=== PATIENT | female | born 1990 | race Caucasian/White ===

== ENCOUNTER 2021-07-02 13:37 | Outpatient (CLI) | payer BC, SELFPAY ==
[2021-07-02 16:53] LABS: *AMPHETAMINES SCREEN URINE Negative (Negative); *BARBITURATES SCREEN URINE Negative (Negative); *BENZODIAZEPINES SCREEN URINE Negative (Negative); Cannabinoids THC Negative (Negative); Cocaine Screen,Urine Negative (Negative); METHADONE URINE SCREEN Negative (Negative); OPIATES URINE SCREEN Negative (Negative)
[2021-07-02 16:55] LABS: Tricyclic Antidepressants Negative (Negative)
[2021-07-02 17:12] LABS: TSH (W/Ref FT4) 2.35 uIU/mL (0.36-3.74)
[2021-07-04 09:33] LABS: Varicella IgG Antibody Positive (See Note)
[2021-07-04 10:26] LABS: Hepatitis C Ab w Rflx HCV PCR Negative (Negative)
[2021-07-04 15:09] LABS: Chlamydia Result Negative (Negative); GC Result Negative (Negative)
[2021-07-05 18:55] LABS: Syphilis IgG w/Reflex Nonreactive (Nonreactive)
[2021-07-07 11:40] LABS: Buprenorphine Negative ng/mL (Cutoff: 5.0); Norbuprenorphine Negative ng/mL (Cutoff: 2.5)
== END 2021-07-02 13:38 | disposition home or self-care (01) ==
LOC: LBO 13:38 → LBN 16:14
PROVIDERS: Visit Provider Advanced Practice Midwife
DX: Z34.92 Encounter for supervision of normal pregnancy, unspecified, second trimester (principal)
CPT/HCPCS: 80307; 86787; 86803; 86850; 86900; 86901; 87491; 87591; 84443; 86780

== ENCOUNTER 2021-07-06 03:42 | Outpatient (CLI) | payer BC, SELFPAY ==
[2021-07-06 12:45] LABS: Glucose,1 Hr (Glucola) 106 mg/dL (80-140)
== END 2021-07-06 03:43 | disposition home or self-care (01) ==
LOC: LBO 03:42
PROVIDERS: Visit Provider Advanced Practice Midwife
DX: Z34.92 Encounter for supervision of normal pregnancy, unspecified, second trimester (principal)
CPT/HCPCS: 36415; 82950

== ENCOUNTER 2021-09-03 02:19 | Outpatient (CLI) | payer BC, SELFPAY ==
[2021-09-03 07:45] LABS: HCT 32.9 % (36.0-46.0); HGB 10.6 g/dL (11.2-15.7); MCHC 32.2 % (32.0-36.0); MCV 90 fL (80-95); MPV 10.2 fL (8.0-11.0); Platelet Count 206 10^3/uL (130-400); RBC 3.65 10^6/uL (3.93-5.22); RDW 12.9 % (11.7-14.6); RDW-SD 42.8 fL; WBC 9.69 10^3/uL (4.4-10.8)
[2021-09-03 07:54] LABS: Glucose,1 Hr (Glucola) 125 mg/dL (80-140)
[2021-09-03 09:39] LABS: TSH (W/Ref FT4) 1.69 uIU/mL (0.36-3.74)
== END 2021-09-03 02:20 | disposition home or self-care (01) ==
LOC: LBO 02:19
PROVIDERS: Advanced Practice Midwife; Visit Provider Advanced Practice Midwife
DX: O99.212 Obesity complicating pregnancy, second trimester (principal); Z3A.26 26 weeks gestation of pregnancy
CPT/HCPCS: 36415; 82950; 85027; 84443

== ENCOUNTER 2021-11-06 17:45 | Outpatient (REF) | payer BC, SELFPAY ==
[2021-11-06 19:12] LABS: *AMPHETAMINES SCREEN URINE Negative (Negative); *BARBITURATES SCREEN URINE Negative (Negative); *BENZODIAZEPINES SCREEN URINE Negative (Negative); Cannabinoids THC Negative (Negative); Cocaine Screen,Urine Negative (Negative); METHADONE URINE SCREEN Negative (Negative); OPIATES URINE SCREEN Negative (Negative)
[2021-11-06 19:13] LABS: Tricyclic Antidepressants Negative (Negative)
[2021-11-13 11:32] LABS: Buprenorphine Negative ng/mL (Cutoff: 5.0); Norbuprenorphine Negative ng/mL (Cutoff: 2.5)
== END 2021-11-06 17:46 | disposition home or self-care (01) ==
LOC: LBN 17:45
PROVIDERS: Visit Provider Advanced Practice Midwife
DX: Z34.93 Encounter for supervision of normal pregnancy, unspecified, third trimester (principal); Z36.85 Encounter for antenatal screening for Streptococcus B; Z3A.37 37 weeks gestation of pregnancy
CPT/HCPCS: 80307; 87081

== ENCOUNTER 2021-11-12 11:16 | Outpatient (REF) | payer BC, SELFPAY ==
--- OUTSIDE RECORDS SUMMARY | 2021-11-12 11:24 | XMS_ITS | Clinical Summary ---
:1990 Demographics Home Phone Preferred Language Unknown Marital Status Unknown Muslim Affiliation Unknown Race Unknown Ethnic Group Unknown Author Organization [facility] Address [address] [place] [address] Care Team Providers Name Role Phone Unavailable Primary Care Provider Unavailable Social History Tobacco Use Types Packs/Day Years Used Date Never Assessed Sex Assigned at Date Recorded Not on file Plan of Treatment Health Maintenance Due Date Last Done Comments COVID-19 Vaccine (1) 1997 Hepatitis C Screen Completed 07/02/2021
--- OUTSIDE RECORDS SUMMARY | 2021-11-12 11:24 | XMS_ITS | Encounter Summary ---
:1990 Demographics Home Phone Preferred Language Unknown Marital Status Unknown Latter-Day Affiliation Unknown Race Unknown Ethnic Group Unknown Author Organization [facility] Address [address] [place] [address] Care Team Providers Name Role Phone Unavailable Primary Care Provider Unavailable Encounter Details Date Type Department Care Team Description 07/03/2021 Lab Requisition [facility] Outr Resulting Lab, Pathology & Laboratory Provider [facility] [address] [place] [address] Social History Tobacco Use Types Packs/Day Years Used Date Never Assessed Sex Assigned at Date Recorded Not on file documented as of this encounter Plan of Treatment Not on filedocumented as of this encounter Procedures Procedure Name Priority Date/Time Associated Diagnosis Comme nts HEPATITIS C AB W Routine 07/02/2021 15:37 Results for this REFLEX TO HCV RNA EST procedure are in BY PCR the results section. VARICELLA IGG Routine 07/02/2021 15:37 Results fo r this ANTIBODY EST procedure are i n the results section. documented in this encounter Results HEPATITIS C AB W REFLEX TO HCV RNA BY PCR (07/02/2021 15:37 EST) Pathologist Sig nature Hep C Antibody Negative Negative [facility] Specimen Blood - Venous blood (substance) Performing Organization Address [facility]/ZIP Code Phon e Number [facility] [address] [place] [address] SERVICES VARICELLA IGG ANTIBODY (07/02/2021 15:37 EST) Varicella IgG Ab PositiveComment: See Note [facility] detectable Varicella Zoster virus IgG antibodies. Specimen Blood - Venous blood (substance) Performing Organization Address [facility]/ZIP Code Phon e Number [facility] [address] [place] [address] SERVICES documented in this encounter Visit Diagnoses Not on filedocumented in this encounter
--- OUTSIDE RECORDS SUMMARY | 2021-11-12 11:24 | XMS_ITS | Encounter Summary ---
:1990 Demographics Home Phone Preferred Language Unknown Marital Status Unknown Scientology Affiliation Unknown Race Unknown Ethnic Group Unknown Author Organization [facility] Address [address] [place] [address] Care Team Providers Name Role Phone Unavailable Primary Care Provider Unavailable Encounter Details Date Type Department Care Team Description 07/03/2021 Lab Requisition [facility] Outr Resulting Lab, Pathology & Laboratory Provider [facility] [address] [place] [address] Social History Tobacco Use Types Packs/Day Years Used Date Never Assessed Sex Assigned at Date Recorded Not on file documented as of this encounter Plan of Treatment Not on filedocumented as of this encounter Procedures Procedure Name Priority Date/Time Associated Comments Diagnosis CHLAMYDIA/N. Routine 07/02/2021 14:30 Results for this GONORRHOEAE AMPLIFIED EST proced ure are in RNA the results section. documented in this encounter Results CHLAMYDIA/N. GONORRHOEAE AMPLIFIED RNA (07/02/2021 14:30 EST) Pathologist Sig nature Gonococcus Result Negative Negative [facility] Chlamydia Result Negative Negative [facility] Specimen Urine - Urine, Dirty Urine Narrative [facility] - 07/04/2021 15:04 EST A first catch urine specimen is acceptab le for detection of Gonorrhea and Chlamydia, but might detect up to 10% fewer infecti ons when compared with vaginal and endocervical swab samples. Performing Organization Address City/State/ZIP Code Phon e Number [facility] [address] [place] [address] SERVICES documented in this encounter Visit Diagnoses Not on filedocumented in this encounter
== END 2021-11-12 11:17 | disposition home or self-care (01) ==
LOC: LBN 11:16
PROVIDERS: Visit Provider Advanced Practice Midwife
DX: Z34.93 Encounter for supervision of normal pregnancy, unspecified, third trimester (principal); Z36.85 Encounter for antenatal screening for Streptococcus B; Z3A.37 37 weeks gestation of pregnancy
CPT/HCPCS: 87081

== ENCOUNTER 2021-11-19 14:14 | Outpatient (REF) | payer BC, SELFPAY ==
[2021-11-19 14:26] VITALS: BP 121/86; PULSE 86
[2021-11-19 14:41] VITALS: BP 128/81; PULSE 84; RESP 18; TEMP 36.8
[2021-11-19 14:45] VITALS: BP 128/81; PULSE 84; TEMP 36.8
--- NOTE | 2021-11-19 15:31 | W.OBNST ---
Date of service: 11/19/21 Time of Service: 15:00 NST Evaluation Reason for NST Reasons for Nonstress Test: GESTATIONAL HYPERTENSION Gestational Age Gestational Age in Weeks and Days: 38 Weeks and 6Days Test and Monitor Explained Test/Monitor Explained: Test Explained, Monitor Explained and Patient Verbalized Understanding Vital Signs Blood Pressure: 128/81 Pulse: 84 Temperature: 98.2 F Urine Results Urine Protein: Negative Urine Ketones: Negative Urine Glucose: Negative Urine Blood: Negative NST Information Date on Monitor: 11/19/21 Time on Monitor: 14:04 Date off Monitor: 11/19/21 Time off Monitor: 15:11 Total Time on Monitor: 67 NST Interventions: PO Hydration NST Evaluation Patient States Movement: Present FHR Baseline: 140 Variability: Moderate 6-25 bpm Accelerations: 15x15 Decelerations: None NST Results: Reactive Note NST Note Note: NST done due to elevation of BP in office, however, not in severe ranges. Patient denies DEVINE, visual disturbance or RUQ pain. Baby has been active. NST is reactive and overall reassuring however difficult to maintain tracing due to frequent movement. Patient has been educated on pre-eclampsia and warning signs to inform us of. Has appointment to follow up in office in 1 week. MICAH NST Reviewed and Verified by: Celsa Ramos
[2021-11-19 15:33] VITALS: BP 128/81; PULSE 84; TEMP 36.8
== END 2021-11-19 15:20 | disposition home or self-care (01) ==
LOC: BCD 14:14
PROVIDERS: Visit Provider Advanced Practice Midwife
DX: O13.3 Gestational [pregnancy-induced] hypertension without significant proteinuria, third trimester (principal); Z3A.38 38 weeks gestation of pregnancy
CPT/HCPCS: 59025

== ENCOUNTER 2021-11-26 13:21 | Outpatient (CLI) | payer BC, SELFPAY ==
[2021-11-26 13:27] VITALS: BP 113/64; PULSE 90; TEMP 37
[2021-11-26 13:46] VITALS: BP 113/64; PULSE 90
--- NOTE | 2021-11-26 14:09 | W.OBNST ---
Date of service: 11/26/21 Time of Service: 14:09 NST Evaluation Reason for NST Reasons for Nonstress Test: GESTATIONAL HYPERTENSION Gestational Age Gestational Age in Weeks and Days: 39 Weeks and 4Days Test and Monitor Explained Test/Monitor Explained: Test Explained, Monitor Explained and Patient Verbalized Understanding Vital Signs Blood Pressure: 113/64 Pulse: 90 Temperature: 98.6 F NST Information Time on Monitor: 13:25 Date off Monitor: 11/26/21 Time off Monitor: 13:45 NST Interventions: None NST Evaluation Patient States Movement: Present FHR Baseline: 120 Variability: Moderate 6-25 bpm Accelerations: 15x15 Decelerations: None NST Results: Reactive Note NST Note Note: B.P. 130/90 at the office today. Nahomi reported that she has been checking her BP at home and it was normal. BP during NST . Discussed twice weekly testing and continue daily BP at home. Post dates testing at 41 weeks. neg edema. She denies symptoms of preeclampsia. Precautions reviewed. After reviewing Nahomi's dating, she reported that her dating was based on LMP although she had very irregular menses. We discussed using the US dating with [facility] 11/29/21. However, I can not access the first trimester US results from [place] at this time. Will obtain. NST Reviewed and Verified by: Celsa Guzman
[2021-11-26 14:12] VITALS: BP 113/64; PULSE 90; TEMP 37
[2021-11-26 14:30] LABS: COMMENT (LAB VIEW ONLY) 31.15 mg/dL; PROTEIN < 6.0 mg/dL
== END 2021-11-26 14:10 | disposition home or self-care (01) ==
LOC: LBN 13:22 → BCD 13:23 → OBS 13:24
PROVIDERS: Visit Provider Advanced Practice Midwife
DX: O13.3 Gestational [pregnancy-induced] hypertension without significant proteinuria, third trimester (principal); Z3A.39 39 weeks gestation of pregnancy
CPT/HCPCS: 59025; 82565; 84156

== ENCOUNTER 2021-11-29 08:32 | Outpatient (CLI) | payer BC, SELFPAY ==
--- OUTSIDE RECORDS SUMMARY | 2021-11-29 08:35 | XMS_ITS | Encounter Summary ---
:1990 Demographics Home Phone Preferred Language Unknown Marital Status Unknown Sabianism Affiliation Unknown Race Unknown Ethnic Group Unknown Author Organization [facility] Address [address] [place] [address] Care Team Providers Name Role Phone Unavailable Primary Care Provider Unavailable Encounter Details Date Type Department Care Team Description 07/03/2021 Lab Requisition [facility] Outr Resulting Lab, Pathology & Laboratory Provider [facility] [address] [place] [address] Social History Tobacco Use Types Packs/Day Years [...] Pathologist Sig nature Gonococcus Result Negative Negative [facility] Chlamydia Result Negative Negative [facility] Specimen Urine - Urine, Initial Void Narrative [facility] - 07/04/2021 15:04 EST A first catch urine specimen is acceptab le for detection of Gonorrhea and Chlamydia, but might detect up to 10% fewer infecti ons when compared with vaginal and endocervical swab samples. Performing Organization Address City/State/ZIP Code Phon e Number [facility] [address] [place] [address] SERVICES documented in this encounter Visit Diagnoses Not on filedocumented in this encounter
--- OUTSIDE RECORDS SUMMARY | 2021-11-29 08:35 | XMS_ITS | Encounter Summary ---
:1990 Demographics Home Phone Preferred Language Unknown Marital Status Unknown Hinduism Affiliation Unknown Race Unknown Ethnic Group Unknown Author Organization [facility] Address [address] [place] [address] Care Team Providers Name Role Phone Unavailable Primary Care Provider Unavailable Encounter Details Date Type Department Care Team Description 07/03/2021 Lab Requisition [facility] Outr Resulting Lab, Pathology & Laboratory Provider [facility] [address] [place] [address] Social History Tobacco Use Types Packs/Day Years [...] Sig nature Hep C Antibody Negative Negative [facility] Specimen Blood - Venous blood (substance) Performing Organization Address [facility]/ZIP Code Phon e Number [facility] [address] [place] [address] SERVICES VARICELLA IGG ANTIBODY (07/02/2021 15:37 EST) Varicella IgG Ab PositiveComment: See Note [facility] detectable Varicella Zoster virus IgG antibodies. Specimen Blood - Venous blood (substance) Performing Organization Address [facility]/ZIP Code Phon e Number [facility] [address] [place] [address] SERVICES documented in this encounter Visit Diagnoses Not on filedocumented in this encounter
[2021-11-29 10:10] VITALS: BP 133/84; PULSE 99; TEMP 36.9
--- NOTE | 2021-11-29 15:58 | W.OBNST ---
Date of service: 11/29/21 Time of Service: 10:50 NST Evaluation Reason for NST Reasons for Nonstress Test: GESTATIONAL HYPERTENSION Gestational Age Gestational Age in Weeks and Days: 40 Weeks and 0Days Test and Monitor Explained Test/Monitor Explained: Test Explained, Monitor Explained and Patient Verbalized Understanding Vital Signs Blood Pressure: 133/84 Pulse: 99 Temperature: 98.4 F NST Information Date on Monitor: 11/29/21 Time on Monitor: 10:07 Date off Monitor: 11/29/21 Time off Monitor: 10:52 Total Time on Monitor: 45 NST Interventions: PO Hydration Contraction Frequency: rare NST Evaluation Patient States Movement: Present FHR Baseline: 140 Variability: Moderate 6-25 bpm Accelerations: 15x15 Decelerations: None NST Results: Reactive Note NST Note Note: Cvx checked at pt request: ft/60%, soft, midpelvis, vtx -3 Keep next appt on Friday in [facility], 41 wk appt for NST & [place] made for 12/05/21 NST Reviewed and Verified by: Seema Alexandre
[2021-11-29 15:59] VITALS: BP 133/84; PULSE 99; TEMP 36.9
== END 2021-11-29 11:15 | disposition home or self-care (01) ==
LOC: BCD 08:33 → OBS 10:08
PROVIDERS: Visit Provider Advanced Practice Midwife
DX: O13.3 Gestational [pregnancy-induced] hypertension without significant proteinuria, third trimester (principal); Z3A.40 40 weeks gestation of pregnancy
CPT/HCPCS: 59025

== ENCOUNTER 2021-12-05 07:13 | Outpatient (CLI) | payer BC, SELFPAY ==
--- OUTSIDE RECORDS SUMMARY | 2021-12-05 07:18 | XMS_ITS | Encounter Summary ---
:1990 Demographics Home Phone Preferred Language Unknown Marital Status Unknown Islam Affiliation Unknown Race Unknown Ethnic Group Unknown Author Organization [facility] Address [address] [place] [address] Care Team Providers Name Role Phone Unavailable Primary Care Provider Unavailable Encounter Details Date Type Department Care Team Description 07/03/2021 Lab Requisition [facility] Outr Resulting Lab, Pathology & Laboratory Provider [facility] [address] [place] [address] Social History Tobacco Use Types Packs/Day Years [...] Pathologist Sig nature Gonococcus Result Negative Negative [facility] Chlamydia Result Negative Negative [facility] Specimen Urine - Urine, Initial Void Narrative [facility] - 07/04/2021 15:04 EST A first catch urine specimen is acceptab le for detection of Gonorrhea and Chlamydia, but might detect up to 10% fewer infecti ons when compared with vaginal and endocervical swab samples. Performing Organization Address City/State/ZIP Code Phon e Number [facility] [address] [place] [address] SERVICES documented in this encounter Visit Diagnoses Not on filedocumented in this encounter
[2021-12-05 10:17] VITALS: BP 127/89; PULSE 104
[2021-12-05 10:34] VITALS: BP 127/89; PULSE 104; TEMP 36.6
--- NOTE | 2021-12-05 10:58 | W.OBNST ---
Date of service: 12/05/21 Time of Service: 10:25 NST Evaluation Reason for NST Reasons for Nonstress Test: POSTDATES Gestational Age Gestational Age in Weeks and Days: 41 Weeks and 1Days Test and Monitor Explained Test/Monitor Explained: Test Explained, Monitor Explained and Patient Verbalized Understanding Vital Signs Blood Pressure: 127/89 Pulse: 104 Temperature: 97.9 F NST Information Date on Monitor: 12/05/21 Time on Monitor: 10:03 Date off Monitor: 12/05/21 Time off Monitor: 10:20 Total Time on Monitor: 17 NST Interventions: Other Contraction Frequency: 0 NST Evaluation Patient States Movement: Present FHR Baseline: 135 Variability: Moderate 6-25 bpm Accelerations: 15x15 Decelerations: None NST Results: Reactive Note NST Note Note: NST is reactive. Patient is requesting induction for post due date induction. I have reviewed options and did VE. 1.5/60/-2 mid and soft. Patient will return this afternoon for induction of labor. MICAH NST Reviewed and Verified by: Celsa Ramos
[2021-12-05 11:00] VITALS: BP 127/89; PULSE 104; TEMP 36.6
== END 2021-12-05 10:38 | disposition home or self-care (01) ==
LOC: BCD 07:21 → NUR 10:02 → OBS 10:10
PROVIDERS: Visit Provider Advanced Practice Midwife
DX: O48.0 Post-term pregnancy (principal); Z3A.41 41 weeks gestation of pregnancy
CPT/HCPCS: 59025

== ENCOUNTER 2021-12-05 11:29 | Inpatient (IN) | payer BC, SELFPAY ==
--- NOTE | 2021-12-05 13:17 | W.PM.OBHPL1 ---
Date of service: 12/05/21 Time of Service: 13:17 Assessment and Plan Assessment and plan (1) Post-dates : Status: Acute Assessment and plan: 1. I have reviewed options of continued ante- surveillance and expectant management as well as option of induction of labor with patient and her . They prefer to move forward with induction. I have reviewed medications such as misoprostol and pitocin use, risks, benefits and expected results. They deny questions at this time. (2) Encounter for induction of labor: Status: Acute Assessment and plan: 1. Saline lock, pre-eclampsia labs due to recent mild BP elevations, type and screen and cbc to be drawn. COVID swab to be done 2. Will give misoprostol 50 mcg and reassess in 4 hours for change in leonard score. 3. Will inform anesthesia of patients arrival and potential for epidural as that was in her plan. 4. Expect NVD. OB-HPI Labor/Delivery History of Present Illness Reason for Visit: Post term Chief Complaint: Scheduled Induction of Labor Indication for Induction: Post Date. CHEL Calculator Estimated Delivery Date Method Current WG Current Estimate 11/29/21 Ultrasound #1 40w 6d Other Estimates 11/27/21 LMP (Certain) 41w 1d History of Present Expected Delivery Route/Plan - CNM FOB/ - Blake Fenton (first child) Doesn't wish to know gender, if male will circ Planning to have an epidural / GBS neg Specific Issues/Plan 1. Transfer @ 18 wks from [place], had PNC there. 2. Panorama screen done in [place] and was nml, records req'ed, also need PAP & 9 wk sono 2a. PAP on 04/26/21 is negative, Panorama low prob x6 female 3. Pt is COVID vaccinated, FOB not yet, [place] has had covid x 2 prior to . 4. Early glucola for BMI of 56=072, glucola at 28 weeks-125 5. Low dose ASA recommended for nulliparity & BMI >30 6. Hx anxiety, no meds x1 yr, declines [facility] referral, PHQ9 score=1 7. LC consult after 36 wks for flat nipples; done 8. Mild anemia, discussed at visit, daily iron supplement recommended 9. TSH 4.27 04/24, repeat x 2 and WNL. Narrative: Nahomi has opted for induction of labor due to 40w6d and increasing discomfort in pelvis affecting her mobility and rest. She has had some mild BP elevations recently at her visits. Will do pre-eclamspia labs on admission. Denies DEVINE, visual disturbance or epigastric pain. I have reviewed option of induction of labor as well as expectant management including risks/benefits of each. Nahomi prefers to move forward with induction today. She plans epidural in active labor. KH Informed Consent Informed Consent: Induction of Labor and Risk,Benefits,Alternatives Discussed Review of Systems All systems reviewed & are unremarkable except as noted in HPI and below PFSH All Active Problems (Updated 12/05/21 @ 13:24 by Celsa Ramos CNM) Encounter for induction of labor (Acute) Post-dates (Acute) Anemia affecting first (Acute) Body mass index [BMI] 38.0-38.9, adult (Acute) (Acute) Medical History History of anxiety Social History Smoking/Tobacco Use Status: Never Smoking risk assessment performed?: Yes Alcohol Intake: never Drug use: Never Household members: spouse Housing: house Number of Children: 0 current occupation: Stock Puller Sexually active: Yes Do you think of yourself as: straight/heterosexual Current gender identity: female What is your relationship status?: Panel score (0-1 are the most socially isolated patients): 1 Darcy/Congregation: Taoist Agree to transfusion: Yes Female Reproductive History Menstrual Age of Menarche: 17 Duration of menses: 3-5 days History History 1 Para 0 Hx # Term Pregnancies 0 Multiple births 0 Hx # Pregnancies 0 Ectopic pregnancies 0 AB induced 0 Hx Number of Living Children 0 AB spontaneous 0 Meds Allergies and Home Medications Allergies Allergy/AdvReac Type Severity Reaction Status Date / Time No Known Drug Allergies Allergy Verified 12/05/21 13:22 Home Medications Medication Instructions Recorded Confirmed Type choline 250 mg tablet 110 mg PO DAILY 06/14/21 12/05/21 History vits 75-iron 28 mg-folic 1 pkg PO DAILY 06/14/21 12/05/21 History acid 800 mcg-omega-3 oral combo pack (One A Day Women's DHA) aspirin 81 mg tablet,delayed 81 mg PO DAILY #90 tabs 07/02/21 12/05/21 Rx release magnesium 200 mg tablet 400 mg PO DAILY 07/30/21 12/05/21 History cholecalciferol (vitamin D3) 25 25 mcg PO DAILY 08/27/21 12/05/21 History mcg (1,000 unit) capsule docusate sodium 100 mg capsule 100 mg PO BID #60 caps 10/09/21 12/05/21 Rx (Colace) ferrous sulfate 325 mg (65 mg 325 mg PO Q OTHER DAY 10/09/21 12/05/21 History iron) tablet (FeroSul) Exam Constitutional Constitutional: no acute distress and obese Detailed Labor and Delivery Exam Dilation: 1.5 Effacement (%): 60 station: -2 Cervix position: mid Consistency: soft Leonard Score: Cervical Points Exam 0 1 2 3 Dilation Closed 1-2cm 3-4 cm 5-6cm Effacement 0-30% 40-50% 60-70% 80% Consistency Firm Medium Soft Station -3 -2 -1,0 +1,+2 Position Posterior Mid Anterior LEONARD Score(Cervical Ripeness Score): 7 Amniotic Membrane Status: Intact Monitor Mode: External Contraction Frequency(min): 0 Contraction Duration(sec): 0 Comments: NST done earlier today demonstrated reactive tracing, CAT I, no active contractions. KH Fetus A Heart Rate Baseline: 120 Monitor Accelerations: 15 X 15 Monitor Decelerations: Variable (one variable to 90 X 15 seconds, may be artifact in tracing, overall reassuring) Variability: Moderate (6-25 BPM) Presentation: Cephalic Categories: Category I Est. Weight: 8 lb 6 oz HEENT Exam HEENT Exam: Normal Neck Exam Neck Exam: Normal Chest/Brest/Axilla Exam Chest Exam: Normal Breast Exam Breast Exam: Not Done Respiratory Exam Respiratory Exam: Normal Cardiovascular Exam Cardiovascular Exam: Normal Abdominal Exam Abdominal Exam: Normal (gravid uterus) Rectal Exam Rectal Exam: Not Done Exam Exam: Normal Extremities Exam Extremities Exam: Normal Back/Spine/Pelvis Exam Back Exam: Normal Pelvis Adequate: Yes Skin Exam Skin Exam: Normal Neurological Exam Neurological Exam: Normal Psychiatric Exam Psychiatric Exam: Normal Results Results Group Beta Strep: Negative Blood Type: A+ Rubella Status: Immune Varicella Immunity: Immune Lab Results: HIV, Hep B, Hep C, Syphillis, GC CT, and UDS all negative. Panorama done and is Low Risk, Patient transferred to us from [place] where labs were done. Risk Assessment Risk for Shoulder Dystocia Historical/Initial OB: POSITIVE FOR: Pre- BMI>30; NEGATIVE FOR: Pelvic Abnormality, Previous Shoulder Dystocia or Previous Macrosomia 40 Weeks: POSTIVE FOR: Post Dates; NEGATIVE FOR: EFW> 4500 gms or Maternal Weight Gain >40lb Counseling: increased risk due to pimiparity and elevated BMI >40 Date/Initial: 12/03/21 Delivery Plan @ 36wks: vaginal delivery expected. Delivery Plan @ 40 wks: Induction of labor planned at 41 weeks if undelivered. Risk for Pre-Eclampsia Date Initiated/Initials: to start @ 18 wks, 07/02 jk Yes, if one or more: NEGATIVE FOR: Hx Pre-E/Gest HTN, Chronic HTN, Multiple Gestation, Pre-gestational DM, Renal Disease, Systemic Lupus or APA Syndrome Yes, if 2 or more: POSITIVE FOR: Nulliparity and BMI>30; NEGATIVE FOR: Age>= 35 yrs, >10yr btwn pregnancies, ethinicty, Mother/Sister w/ Pre-E or Previous IUGR Risk for Post- Hemorrhage Initial: NEGATIVE FOR: Multiple Gestation, Previous PPH, Known Clotting Deficiency, Grand Multiparity or Anticoagulation Counseled re: Active Management: Yes Date/Initials: 12/03/21 Risks Reviewed Risks Reviewed Upon Admission: Yes
--- OUTSIDE RECORDS SUMMARY | 2021-12-05 13:19 | XMS_ITS | Encounter Summary ---
:1990 Demographics Home Phone Preferred Language Unknown Marital Status Unknown Confucianist Affiliation Unknown Race Unknown Ethnic Group Unknown Author Organization [facility] Address [address] [place] [address] Care Team Providers Name Role Phone Unavailable Primary Care Provider Unavailable Encounter Details Date Type Department Care Team Description 07/03/2021 Lab Requisition [facility] Outr Resulting Lab, Pathology & Laboratory Provider [facility] [address] [place] [address] Social History Tobacco Use Types Packs/Day Years [...] Pathologist Sig nature Gonococcus Result Negative Negative [facility] Chlamydia Result Negative Negative [facility] Specimen Urine - Urine, Initial Void Narrative [facility] - 07/04/2021 15:04 EST A first catch urine specimen is acceptab le for detection of Gonorrhea and Chlamydia, but might detect up to 10% fewer infecti ons when compared with vaginal and endocervical swab samples. Performing Organization Address City/State/ZIP Code Phon e Number [facility] [address] [place] [address] SERVICES documented in this encounter Visit Diagnoses Not on filedocumented in this encounter
[2021-12-05 13:20] VITALS: BP 118/80; PULSE 84; RESP 16; TEMP 36.6; O2SAT 97
--- NOTE | 2021-12-05 14:08 | W.ANESPRE ---
General Info Date of Service Date Performed: 12/05/21 Height: 5 ft 6 in Weight: 122 kg Body Mass Index (BMI): 43.4 Meds Allergies and Home Medications Allergies Allergy/AdvReac Type Severity Reaction Status Date / Time No Known Drug Allergies Allergy Verified 12/05/21 13:22 Home Medication Medication Instructions Recorded choline 250 mg tablet 110 mg PO DAILY 06/14/21 vits 75-iron 28 mg-folic 1 pkg PO DAILY 06/14/21 acid 800 mcg-omega-3 oral combo pack (One A Day Women[facility] DHA) aspirin 81 mg tablet,delayed 81 mg PO DAILY #90 tabs 07/02/21 release magnesium 200 mg tablet 400 mg PO DAILY 07/30/21 cholecalciferol (vitamin D3) 25 25 mcg PO DAILY 08/27/21 mcg (1,000 unit) capsule docusate sodium 100 mg capsule 100 mg PO BID #60 caps 10/09/21 (Colace) ferrous sulfate 325 mg (65 mg 325 mg PO Q OTHER DAY 10/09/21 iron) tablet (FeroSul) Current Visit Medications: Current Medications Generic Name Dose Route Start Last Admin Trade Name Freq PRN Reason Stop Dose Admin Sodium Chloride 500 mls @ 0 mls/hr 12/05/21 11:28 Saline 500ml Bag IV PRN PRN As Directed Ringer's Solution 1,000 mls @ 200 mls/hr 12/05/21 11:30 IV INFUSION [facility] IV Miscellaneous Supplies 1 each 12/05/21 11:30 Iv Access IV DIRECTED [facility] Misoprostol 50 mcg 12/05/21 12:00 Misoprostol 25 Mcg Tab PO Q4H [facility] Sodium Chloride 0 ml 12/05/21 11:28 Normal Saline Flush 10 Ml Syr IVP PRN PRN Terbutaline Sulfate 0.25 mg 12/05/21 11:28 Terbutaline 1 Mg/Ml Vial SC PRN PRN Zolpidem Tartrate 10 mg 12/05/21 21:00 Zolpidem 5 Mg Tab PO 12/06/21 06:00 2100 JIMENA PFSH Active Problems Active Problems: Problem Status Onset Code Encounter for induction of labor Z34.90 Post-dates O48.0 Anemia affecting first O99.019 Body mass index [BMI] 38.0-38.9, adult Z68.38 Z34.90 Medical History Medical History History of anxiety Tobacco Smoking/Tobacco Use Status: Never Alcohol Alcohol Intake: never Substance Use Substance use: Never Prental History History 1 Para 0 Hx # Term Pregnancies 0 Multiple births 0 Hx # Pregnancies 0 Ectopic pregnancies 0 AB induced 0 Hx Number of Living Children 0 AB spontaneous 0 Vital Signs and Lab Results Lab Results Result Diagrams: 12/05/21 14:05 12/05/21 14:05 Blood Type / Crossmatch: No Data to Display Complete Blood Count: White Blood Count 12.23 10^3/uL (4.4-10.8) H 12/05/21 14:05 Red Blood Count 4.04 10^6/uL (3.93-5.22) 12/05/21 14:05 Hemoglobin 11.7 g/dL (11.2-15.7) 12/05/21 14:05 Hematocrit 35.4 % (36.0-46.0) L 12/05/21 14:05 Platelet Count 238 10^3/uL (130-400) 12/05/21 14:05 Complete Metabolic Panel: Sodium Level Pending 12/05/21 14:05 Potassium Level Pending 12/05/21 14:05 Chloride Level Pending 12/05/21 14:05 Carbon Dioxide Level Pending 12/05/21 14:05 Blood Urea Nitrogen Pending 12/05/21 14:05 Creatinine Pending 12/05/21 14:05 Estimated GFR/1.73 m2 Pending 12/05/21 14:05 Calcium Level Pending 12/05/21 14:05 Albumin Pending 12/05/21 14:05 Glucose Level Pending 12/05/21 14:05 Liver Function Panel: Alanine Aminotransferase (ALT/SGPT) Pending 12/05/21 14:05 Aspartate Amino Transf (AST/SGOT) Pending 12/05/21 14:05 Coagulation Panel: No Data to Display Cardiac Panel: No Data to Display Arterial Blood Gas: No Data to Display Venous Blood Gas: No Data to Display Pancreas Panel: No Data to Display Thyroid Panel: No Data to Display Infectious Disease: Coronavirus (COVID-19)(PCR) Pending 12/05/21 13:50 Coronavirus 2019 Source Nasal/Nares 12/05/21 13:50 Blood Cultures: No Data to Display Toxicology Panel: Urine Amphetamines Screen Negative (Negative) 11/06/21 15:50 Urine Benzodiazepines Screen Negative (Negative) 11/06/21 15:50 Urine Barbiturates Screen Negative (Negative) 11/06/21 15:50 Urine Cocaine Screen Negative (Negative) 11/06/21 15:50 Urine Methadone Screen Negative (Negative) 11/06/21 15:50 Urine Opiates Screen Negative (Negative) 11/06/21 15:50 Ur Tricyclic Antidepressants Screen Negative (Negative) 11/06/21 15:50 Ur Tetrahydrocannabinol (THC) Scrn Negative (Negative) 11/06/21 15:50 Panel: No Data to Display Anesthesia Assessment and Plan Anesthesia History Personal History: No History of Anesthesia Complications Family History: No Family History of Anesthesia Complications Exercise Tolerance Exercise Tolerance: Metabolic Equivalents>4 Pertinent Negatives Pertinent Negatives: No Symptoms of GERD, No Major Cardiovascular Symptoms or Complaints, No Major Pulmonary Symptoms or Complaints and No History of CVA/TIA Cardiac & Pulmonary Exam Cardiac Exam: Normal S1/S2 Heart Sounds Pulmonary Exam: Clear Bilateral Breath Sounds Implantable Cardiac Device Does patient have a Pacemaker or an ICD?: No Airway Exam Known Difficult Airway: No Mallampati Class: 4 Mouth Opening: Normal (> 3cm) Thyromental Distance: Greater than 3 cm Neck Range of Motion: Full ROM Neck Circumference: Normal Teeth Condition: Normal Dentition ASA Classification ASA Score: ASA 2 Emergency Case?: No NPO Status NPO Status: Full Stomach Status Status: Confirmed Anesthesia Plan Resuscitation Status: Full Code Anesthesia Technique: Epidural Anesthesia Airway Planned: Natural Airway Monitors Used: Standard Monitors
[2021-12-05 14:09] VITALS: BP 118/80; PULSE 97; RESP 16; TEMP 36.6; O2SAT 99
[2021-12-05 14:12] LABS: Source Nasal/Nares
[2021-12-05] MEDS: miSOPROStol 25 MCG TAB 50 MCG PO (14:15)
[2021-12-05 14:19] LABS: HCT 35.4 % (36.0-46.0); HGB 11.7 g/dL (11.2-15.7); MCHC 33.1 % (32.0-36.0); MCV 88 fL (80-95); MPV 10.6 fL (8.0-11.0); Platelet Count 238 10^3/uL (130-400); RBC 4.04 10^6/uL (3.93-5.22); RDW 14.1 % (11.7-14.6); RDW-SD 45.3 fL; WBC 12.23 10^3/uL (4.4-10.8)
[2021-12-05 14:22] VITALS: BMI 43.4
[2021-12-05 14:29] LABS: ALT 18 U/L (14-59); AST 11 U/L (15-37); Albumin 2.7 g/dL (3.4-5.0); Alkaline Phosphatase 202 U/L (46-116); Anion Gap 7.7 mmol/L (3-11); BUN 8 mg/dL (7-18); Bilirubin, Total 0.2 mg/dL (0.2-1.0); CO2 23.3 mmol/L (21.0-32.0); CREATININE 0.6 mg/dL (0.55-1.02); Calcium 9.3 mg/dL (8.5-10.1); Chloride 101 mmol/L (98-107); Glucose 96 mg/dL (74-106); LDH 164 U/L (81-234); Potassium 3.8 mmol/L (3.5-5.1); Sodium 132 mmol/L (136-145); Total Protein 7.2 g/dL (6.4-8.2); Uric Acid 4.1 mg/dL (2.6-6.0)
[2021-12-05 14:29] LABS: PROTEIN 6.2 mg/dL; Prot/Crea Ur Ratio 0.12
[2021-12-05 15:10] LABS: COVID-19 PCR Negative (Negative)
[2021-12-05 17:55] VITALS: BP 128/78; PULSE 88
--- NOTE | 2021-12-05 17:56 | PGE_ITS ---
Date of service: 12/05/21 Time of Service: 17:57 Informed Consent Informed Consent: Induction of Labor and Risk,Benefits,Alternatives Discussed Pelvic Exam Comments: VE deferred until cervidil is placed, it is unlikely that significant change has occurred. KH Contractions Monitor Mode: External Contraction Frequency(min): irregular Contraction Duration(sec): 10-50 Intensity: Mild Fetus A Monitor: Novii Heart Rate Baseline: 120 Variability: Moderate (6-25 BPM) Categories: Category I Accelerations: 15 X 15 Decelerations: None Assessment and Plan Assessment and plan (1) Encounter for induction of labor: Status: Acute Assessment and plan: 1. Cervidil will be placed by CNM, will encourage patient rest 2. will reassess cervix as indicated by maternal status or by morning. Objective Abnormal lab results 12/05/21 12/05/21 Range/Units 14:05 14:05 WBC 12.23 H (4.4-10.8) 10^3/uL Hct 35.4 L (36.0-46.0) % Sodium 132 L (136-145) mmol/L AST 11 L (15-37) U/L Alkaline Phosphatase 202 H (46-116) U/L Albumin 2.7 L (3.4-5.0) g/dL Temp Pulse Resp BP Pulse Ox 97.9 F 88 16 128/78 99 12/05/21 14:09 12/05/21 17:55 12/05/21 14:09 12/05/21 17:55 12/05/21 14:09 Laboratory Results WBC 12.23 10^3/uL (4.4-10.8) H 12/05/21 14:05 RBC 4.04 10^6/uL (3.93-5.22) 12/05/21 14:05 Hgb 11.7 g/dL (11.2-15.7) 12/05/21 14:05 Hct 35.4 % (36.0-46.0) L 12/05/21 14:05 MCV 88 fL (80-95) 12/05/21 14:05 MCH 29.0 pg (27.0-33.0) 12/05/21 14:05 MCHC 33.1 % (32.0-36.0) 12/05/21 14:05 RDW 14.1 % (11.7-14.6) 12/05/21 14:05 Plt Count 238 10^3/uL (130-400) 12/05/21 14:05 MPV 10.6 fL (8.0-11.0) 12/05/21 14:05 Sodium 132 mmol/L (136-145) L 12/05/21 14:05 Potassium 3.8 mmol/L (3.5-5.1) 12/05/21 14:05 Chloride 101 mmol/L (98-107) 12/05/21 14:05 Carbon Dioxide 23.3 mmol/L (21.0-32.0) 12/05/21 14:05 Anion Gap 7.7 mmol/L (3-11) 12/05/21 14:05 BUN 8 mg/dL (7-18) 12/05/21 14:05 Creatinine 0.6 mg/dL (0.55-1.02) 12/05/21 14:05 Estimated GFR/1.73 m2 >= 60.00 (mL/min/1.73m2) 12/05/21 14:05 Glucose 96 mg/dL (74-106) 12/05/21 14:05 Uric Acid 4.1 mg/dL (2.6-6.0) 12/05/21 14:05 Calcium 9.3 mg/dL (8.5-10.1) 12/05/21 14:05 Total Bilirubin 0.2 mg/dL (0.2-1.0) 12/05/21 14:05 AST 11 U/L (15-37) L 12/05/21 14:05 ALT 18 U/L (14-59) 12/05/21 14:05 Alkaline Phosphatase 202 U/L (46-116) H 12/05/21 14:05 Lactate Dehydrogenase 164 U/L (81-234) 12/05/21 14:05 Total Protein 7.2 g/dL (6.4-8.2) 12/05/21 14:05 Albumin 2.7 g/dL (3.4-5.0) L 12/05/21 14:05 Ur Random Creatinine 51.60 mg/dL 12/05/21 13:50 U Random Total Protein 6.2 mg/dL 12/05/21 13:50 U [place] Prot/Creat Ratio 0.12 12/05/21 13:50 COVID-19 Source Nasal/Nares 12/05/21 13:50 SARS-CoV-2 (PCR) Negative (Negative) 12/05/21 13:50 Patient ABO/Rh A Positive 12/05/21 14:05 Antibody Screen NEGATIVE 12/05/21 14:05 Vital Signs Reviewed: Yes Subjective Interval history since last seen: minimal response to misoprostol 50 mcg. Patient would like to avoid pitocin at this time and is interested in cervidil for overnight cervical ripening. I have reviewed its use and expected response. I have also reviewed that it is possible to go into labor over night with this method and that we will support her comfort if that occurs. KH Interventions Induction (cervidil will be placed) Indication: Post Date, Type of Induction: Cervical Ripening (cervidil), Results Hemoglobin/Hematocrit: Hgb 11.7 g/dL (11.2-15.7) 12/05/21 14:05 Hct 35.4 % (36.0-46.0) L 12/05/21 14:05 Abnormal Lab Findings: Abnormal Labs 12/05/21 12/05/21 14:05 14:05 WBC 12.23 H Hct 35.4 L Sodium 132 L AST 11 L Alkaline Phosphatase 202 H Albumin 2.7 L
[2021-12-05] MEDS: Dinoprostone-CERVICAL 10 MG VSUPP VG (18:17)
[2021-12-05 19:20] VITALS: BP 121/76; PULSE 85; RESP 18; TEMP 37
[2021-12-05 21:03] VITALS: BP 129/71; PULSE 82; RESP 18; TEMP 36.8
--- NOTE | 2021-12-05 21:21 | W.PM.OBNL1 ---
Date of service: 12/05/21 Time of Service: 21:21 Informed Consent Informed Consent: Induction of Labor and Risk,Benefits,Alternatives Discussed Pelvic Exam Comments: VE deferred Contractions Monitor Mode: External Contraction Frequency(min): irregular Intensity: Mild Fetus A Monitor: Novii Heart Rate Baseline: 120 Variability: Moderate (6-25 BPM) Categories: Category I Accelerations: 15 X 15 Decelerations: None Assessment and Plan Assessment and plan (1) Encounter for induction of labor: Status: Acute Assessment and plan: 1. continue present management 2. will do VS only while awake over night 3. will remove cervidil at 0615 unless otherwise indicated and reassess at that time. KH Objective Abnormal lab results 12/05/21 12/05/21 Range/Units 14:05 14:05 WBC 12.23 H (4.4-10.8) 10^3/uL Hct 35.4 L (36.0-46.0) % Sodium 132 L (136-145) mmol/L AST 11 L (15-37) U/L Alkaline Phosphatase 202 H (46-116) U/L Albumin 2.7 L (3.4-5.0) g/dL Temp Pulse Resp BP Pulse Ox 98.2 F 82 18 129/71 99 12/05/21 21:03 12/05/21 21:03 12/05/21 21:03 12/05/21 21:03 12/05/21 14:09 Laboratory Results WBC 12.23 10^3/uL (4.4-10.8) H 12/05/21 14:05 RBC 4.04 10^6/uL (3.93-5.22) 12/05/21 14:05 Hgb 11.7 g/dL (11.2-15.7) 12/05/21 14:05 Hct 35.4 % (36.0-46.0) L 12/05/21 14:05 MCV 88 fL (80-95) 12/05/21 14:05 MCH 29.0 pg (27.0-33.0) 12/05/21 14:05 MCHC 33.1 % (32.0-36.0) 12/05/21 14:05 RDW 14.1 % (11.7-14.6) 12/05/21 14:05 Plt Count 238 10^3/uL (130-400) 12/05/21 14:05 MPV 10.6 fL (8.0-11.0) 12/05/21 14:05 Sodium 132 mmol/L (136-145) L 12/05/21 14:05 Potassium 3.8 mmol/L (3.5-5.1) 12/05/21 14:05 Chloride 101 mmol/L (98-107) 12/05/21 14:05 Carbon Dioxide 23.3 mmol/L (21.0-32.0) 12/05/21 14:05 Anion Gap 7.7 mmol/L (3-11) 12/05/21 14:05 BUN 8 mg/dL (7-18) 12/05/21 14:05 Creatinine 0.6 mg/dL (0.55-1.02) 12/05/21 14:05 Estimated GFR/1.73 m2 >= 60.00 (mL/min/1.73m2) 12/05/21 14:05 Glucose 96 mg/dL (74-106) 12/05/21 14:05 Uric Acid 4.1 mg/dL (2.6-6.0) 12/05/21 14:05 Calcium 9.3 mg/dL (8.5-10.1) 12/05/21 14:05 Total Bilirubin 0.2 mg/dL (0.2-1.0) 12/05/21 14:05 AST 11 U/L (15-37) L 12/05/21 14:05 ALT 18 U/L (14-59) 12/05/21 14:05 Alkaline Phosphatase 202 U/L (46-116) H 12/05/21 14:05 Lactate Dehydrogenase 164 U/L (81-234) 12/05/21 14:05 Total Protein 7.2 g/dL (6.4-8.2) 12/05/21 14:05 Albumin 2.7 g/dL (3.4-5.0) L 12/05/21 14:05 Ur Random Creatinine 51.60 mg/dL 12/05/21 13:50 U Random Total Protein 6.2 mg/dL 12/05/21 13:50 U [place] Prot/Creat Ratio 0.12 12/05/21 13:50 COVID-19 Source Nasal/Nares 12/05/21 13:50 SARS-CoV-2 (PCR) Negative (Negative) 12/05/21 13:50 Patient ABO/Rh A Positive 12/05/21 14:05 Antibody Screen NEGATIVE 12/05/21 14:05 Subjective Interval history since last seen: Out of bed ambulating and then alternating with rest periods. Denies feeling discomfort. No LOF or vaginal bleeding. Reports active baby. KH Results Hemoglobin/Hematocrit: Hgb 11.7 g/dL (11.2-15.7) 12/05/21 14:05 Hct 35.4 % (36.0-46.0) L 12/05/21 14:05 Abnormal Lab Findings: Abnormal Labs 12/05/21 12/05/21 14:05 14:05 WBC 12.23 H Hct 35.4 L Sodium 132 L AST 11 L Alkaline Phosphatase 202 H Albumin 2.7 L
[2021-12-05] MEDS: Zolpidem 5 MG TAB 10 MG PO (22:10)
--- NOTE | 2021-12-05 23:03 | NUR.NOTE ---
Assumed care of pt. Report rec'd from Ashley. Pt resting in darkened room, comfortable at this time. Rec'd Ambien at 2210 per report. Pt states she has occasional cramping nothing regular. Plan of care reviewed-plans of nitrous or epidural for pain management. Relaxed, comfortable and attempting to sleep.Nursing Note:
[2021-12-06] VITALS (13 sets, daily range): BP systolic 98–148; BP diastolic 53–85; PULSE 84–123; RESP 16–18; TEMP 36.7–37.4; O2SAT 99
--- NOTE | 2021-12-06 03:29 | NUR.NOTE ---
patient up to void. Novii reset and trouble shootNursing Note:
--- NOTE | 2021-12-06 05:49 | NUR.NOTE ---
reviewed plan of care with pt this am. Becoming anxious about increased pain. Wants the cervidil out and wants to talk to CNM. Hilda made aware of pt request and is currentlyh at the beside. Reviewed coping mechanisms with pain and how to work with contractions in different poistions. Pt asking questions and encouraged to verbalize her fears and express her needs. Nursing Note:
--- NOTE | 2021-12-06 06:05 | W.PM.OBNL1 ---
Date of service: 12/06/21 Time of Service: 06:05 Informed Consent Informed Consent: Induction of Labor and Risk,Benefits,Alternatives Discussed Pelvic Exam Dilation: 2 Effacement (%): 70 station: -2 Cervix Position: mid Consistency: soft BISHOPS Score(Cervical Ripeness Score): 7 Contractions Monitor Mode: External Contraction Frequency(min): irregular Contraction Duration(sec): 20-50 Intensity: Mild Fetus A Monitor: Novii Heart Rate Baseline: 140 Variability: Moderate (6-25 BPM) Categories: Category I Accelerations: 15 X 15 Decelerations: None Assessment and Plan Assessment and plan (1) Encounter for induction of labor: Status: Acute Assessment and plan: 1. Cervidil removed. 2. Pitoin to begin this morning after shower, breakfast 3. Discussed pain management options, position changes, nitrous, epidual 4. order for Nitrous Oxide and IV Ondansetron placed prn 5. Continue to expect NVD. KH Objective Abnormal lab results 12/05/21 12/05/21 Range/Units 14:05 14:05 WBC 12.23 H (4.4-10.8) 10^3/uL Hct 35.4 L (36.0-46.0) % Sodium 132 L (136-145) mmol/L AST 11 L (15-37) U/L Alkaline Phosphatase 202 H (46-116) U/L Albumin 2.7 L (3.4-5.0) g/dL Temp Pulse Resp BP Pulse Ox 98.1 F 84 18 126/66 99 12/06/21 03:25 12/06/21 03:25 12/06/21 03:25 12/06/21 03:25 12/05/21 14:09 Laboratory Results WBC 12.23 10^3/uL (4.4-10.8) H 12/05/21 14:05 RBC 4.04 10^6/uL (3.93-5.22) 12/05/21 14:05 Hgb 11.7 g/dL (11.2-15.7) 12/05/21 14:05 Hct 35.4 % (36.0-46.0) L 12/05/21 14:05 MCV 88 fL (80-95) 12/05/21 14:05 MCH 29.0 pg (27.0-33.0) 12/05/21 14:05 MCHC 33.1 % (32.0-36.0) 12/05/21 14:05 RDW 14.1 % (11.7-14.6) 12/05/21 14:05 Plt Count 238 10^3/uL (130-400) 12/05/21 14:05 MPV 10.6 fL (8.0-11.0) 12/05/21 14:05 Sodium 132 mmol/L (136-145) L 12/05/21 14:05 Potassium 3.8 mmol/L (3.5-5.1) 12/05/21 14:05 Chloride 101 mmol/L (98-107) 12/05/21 14:05 Carbon Dioxide 23.3 mmol/L (21.0-32.0) 12/05/21 14:05 Anion Gap 7.7 mmol/L (3-11) 12/05/21 14:05 BUN 8 mg/dL (7-18) 12/05/21 14:05 Creatinine 0.6 mg/dL (0.55-1.02) 12/05/21 14:05 Estimated GFR/1.73 m2 >= 60.00 (mL/min/1.73m2) 12/05/21 14:05 Glucose 96 mg/dL (74-106) 12/05/21 14:05 Uric Acid 4.1 mg/dL (2.6-6.0) 12/05/21 14:05 Calcium 9.3 mg/dL (8.5-10.1) 12/05/21 14:05 Total Bilirubin 0.2 mg/dL (0.2-1.0) 12/05/21 14:05 AST 11 U/L (15-37) L 12/05/21 14:05 ALT 18 U/L (14-59) 12/05/21 14:05 Alkaline Phosphatase 202 U/L (46-116) H 12/05/21 14:05 Lactate Dehydrogenase 164 U/L (81-234) 12/05/21 14:05 Total Protein 7.2 g/dL (6.4-8.2) 12/05/21 14:05 Albumin 2.7 g/dL (3.4-5.0) L 12/05/21 14:05 Ur Random Creatinine 51.60 mg/dL 12/05/21 13:50 U Random Total Protein 6.2 mg/dL 12/05/21 13:50 U [place] Prot/Creat Ratio 0.12 12/05/21 13:50 COVID-19 Source Nasal/Nares 12/05/21 13:50 SARS-CoV-2 (PCR) Negative (Negative) 12/05/21 13:50 Patient ABO/Rh A Positive 12/05/21 14:05 Antibody Screen NEGATIVE 12/05/21 14:05 Subjective Interval history since last seen: Patient requested cervidil be removed 30 minutes early due to increasing discomfort. She states there is cramping in lower abdomen. Nahomi was sleeping soundly until between 0001 and 0100 this morning and has been awake a fair amount since then using her phone as a distraction. She is anxious about labor and contractions and is currently watching a video on positioning with labor. We discussed that the next step in her induction would be pitocin but that we can give her an hour or so to have breakfast, shower and watch this dvd. Nahomi had emesis times one this morning and I have reviewed that this is common and that Ondansetron is available if she desires. She is also asking about Nitrous for pain relief and relaxation and that is ordered. I reviewed the option of having epidural placed prior to starting pitocin vs waiting for her discomfort level to increase and she is considering that option as well. KH Results Hemoglobin/Hematocrit: Hgb 11.7 g/dL (11.2-15.7) 12/05/21 14:05 Hct 35.4 % (36.0-46.0) L 12/05/21 14:05 Abnormal Lab Findings: Abnormal Labs 12/05/21 12/05/21 14:05 14:05 WBC 12.23 H Hct 35.4 L Sodium 132 L AST 11 L Alkaline Phosphatase 202 H Albumin 2.7 L
--- NOTE | 2021-12-06 06:08 | NUR.NOTE ---
Cervidil tape out at 0600 by CNMNursing Note:
[2021-12-06] MEDS: Ondansetron 4 MG/2 ML VIAL IVP (06:52)
--- NOTE | 2021-12-06 07:32 | W.PM.OBNL1 ---
Date of service: 12/06/21 Time of Service: 07:33 Informed Consent Informed Consent: Induction of Labor and Risk,Benefits,Alternatives Discussed Assessment and Plan Assessment and plan (1) Encounter for induction of labor: Status: Acute Assessment and plan: 1. patient is using tub for relaxation at this time and then will plan to start pitocin this morning. KH 2. expect NVD. KH Objective Abnormal lab results 12/05/21 12/05/21 Range/Units 14:05 14:05 WBC 12.23 H (4.4-10.8) 10^3/uL Hct 35.4 L (36.0-46.0) % Sodium 132 L (136-145) mmol/L AST 11 L (15-37) U/L Alkaline Phosphatase 202 H (46-116) U/L Albumin 2.7 L (3.4-5.0) g/dL Temp Pulse Resp BP Pulse Ox 98.1 F 84 18 126/66 99 12/06/21 03:25 12/06/21 03:25 12/06/21 03:25 12/06/21 03:25 12/05/21 14:09 Laboratory Results WBC 12.23 10^3/uL (4.4-10.8) H 12/05/21 14:05 RBC 4.04 10^6/uL (3.93-5.22) 12/05/21 14:05 Hgb 11.7 g/dL (11.2-15.7) 12/05/21 14:05 Hct 35.4 % (36.0-46.0) L 12/05/21 14:05 MCV 88 fL (80-95) 12/05/21 14:05 MCH 29.0 pg (27.0-33.0) 12/05/21 14:05 MCHC 33.1 % (32.0-36.0) 12/05/21 14:05 RDW 14.1 % (11.7-14.6) 12/05/21 14:05 Plt Count 238 10^3/uL (130-400) 12/05/21 14:05 MPV 10.6 fL (8.0-11.0) 12/05/21 14:05 Sodium 132 mmol/L (136-145) L 12/05/21 14:05 Potassium 3.8 mmol/L (3.5-5.1) 12/05/21 14:05 Chloride 101 mmol/L (98-107) 12/05/21 14:05 Carbon Dioxide 23.3 mmol/L (21.0-32.0) 12/05/21 14:05 Anion Gap 7.7 mmol/L (3-11) 12/05/21 14:05 BUN 8 mg/dL (7-18) 12/05/21 14:05 Creatinine 0.6 mg/dL (0.55-1.02) 12/05/21 14:05 Estimated GFR/1.73 m2 >= 60.00 (mL/min/1.73m2) 12/05/21 14:05 Glucose 96 mg/dL (74-106) 12/05/21 14:05 Uric Acid 4.1 mg/dL (2.6-6.0) 12/05/21 14:05 Calcium 9.3 mg/dL (8.5-10.1) 12/05/21 14:05 Total Bilirubin 0.2 mg/dL (0.2-1.0) 12/05/21 14:05 AST 11 U/L (15-37) L 12/05/21 14:05 ALT 18 U/L (14-59) 12/05/21 14:05 Alkaline Phosphatase 202 U/L (46-116) H 12/05/21 14:05 Lactate Dehydrogenase 164 U/L (81-234) 12/05/21 14:05 Total Protein 7.2 g/dL (6.4-8.2) 12/05/21 14:05 Albumin 2.7 g/dL (3.4-5.0) L 12/05/21 14:05 Ur Random Creatinine 51.60 mg/dL 12/05/21 13:50 U Random Total Protein 6.2 mg/dL 12/05/21 13:50 U [place] Prot/Creat Ratio 0.12 12/05/21 13:50 COVID-19 Source Nasal/Nares 12/05/21 13:50 SARS-CoV-2 (PCR) Negative (Negative) 12/05/21 13:50 Patient ABO/Rh A Positive 12/05/21 14:05 Antibody Screen NEGATIVE 12/05/21 14:05 Subjective Interval history since last seen: Nahomi is in birthing tub for increased relaxation. Continues to have frequent low intensity contractions since cervidil was removed. IV Ondandsetron was given for nausea and vomiting. tracing has been reassuring but with shower and now in tub, tracing is not working well and as we are not augmenting labor at this time due to unit census / acuity, we will use intermittent doppler FHR reading. Plan is to move forward with pitocin this morning. KH Results Hemoglobin/Hematocrit: Hgb 11.7 g/dL (11.2-15.7) 12/05/21 14:05 Hct 35.4 % (36.0-46.0) L 12/05/21 14:05 Abnormal Lab Findings: Abnormal Labs 12/05/21 12/05/21 14:05 14:05 WBC 12.23 H Hct 35.4 L Sodium 132 L AST 11 L Alkaline Phosphatase 202 H Albumin 2.7 L
[2021-12-06] MEDS: Lactated Ringers 1,000 ML 200 ML IV (10:08)
--- NOTE | 2021-12-06 11:39 | W.PM.OBNL1 ---
Date of service: 12/06/21 Time of Service: 11:39 Informed Consent Informed Consent: Induction of Labor and Risk,Benefits,Alternatives Discussed Objective Abnormal lab results 12/05/21 12/05/21 Range/Units 14:05 14:05 WBC 12.23 H (4.4-10.8) 10^3/uL Hct 35.4 L (36.0-46.0) % Sodium 132 L (136-145) mmol/L AST 11 L (15-37) U/L Alkaline Phosphatase 202 H (46-116) U/L Albumin 2.7 L (3.4-5.0) g/dL Temp Pulse Resp BP Pulse Ox 98.1 F 93 H 18 148/81 H 99 12/06/21 03:25 12/06/21 11:05 12/06/21 03:25 12/06/21 11:05 12/06/21 11:05 Laboratory Results WBC 12.23 10^3/uL (4.4-10.8) H 12/05/21 14:05 RBC 4.04 10^6/uL (3.93-5.22) 12/05/21 14:05 Hgb 11.7 g/dL (11.2-15.7) 12/05/21 14:05 Hct 35.4 % (36.0-46.0) L 12/05/21 14:05 MCV 88 fL (80-95) 12/05/21 14:05 MCH 29.0 pg (27.0-33.0) 12/05/21 14:05 MCHC 33.1 % (32.0-36.0) 12/05/21 14:05 RDW 14.1 % (11.7-14.6) 12/05/21 14:05 Plt Count 238 10^3/uL (130-400) 12/05/21 14:05 MPV 10.6 fL (8.0-11.0) 12/05/21 14:05 Sodium 132 mmol/L (136-145) L 12/05/21 14:05 Potassium 3.8 mmol/L (3.5-5.1) 12/05/21 14:05 Chloride 101 mmol/L (98-107) 12/05/21 14:05 Carbon Dioxide 23.3 mmol/L (21.0-32.0) 12/05/21 14:05 Anion Gap 7.7 mmol/L (3-11) 12/05/21 14:05 BUN 8 mg/dL (7-18) 12/05/21 14:05 Creatinine 0.6 mg/dL (0.55-1.02) 12/05/21 14:05 Estimated GFR/1.73 m2 >= 60.00 (mL/min/1.73m2) 12/05/21 14:05 Glucose 96 mg/dL (74-106) 12/05/21 14:05 Uric Acid 4.1 mg/dL (2.6-6.0) 12/05/21 14:05 Calcium 9.3 mg/dL (8.5-10.1) 12/05/21 14:05 Total Bilirubin 0.2 mg/dL (0.2-1.0) 12/05/21 14:05 AST 11 U/L (15-37) L 12/05/21 14:05 ALT 18 U/L (14-59) 12/05/21 14:05 Alkaline Phosphatase 202 U/L (46-116) H 12/05/21 14:05 Lactate Dehydrogenase 164 U/L (81-234) 12/05/21 14:05 Total Protein 7.2 g/dL (6.4-8.2) 12/05/21 14:05 Albumin 2.7 g/dL (3.4-5.0) L 12/05/21 14:05 Ur Random Creatinine 51.60 mg/dL 12/05/21 13:50 U Random Total Protein 6.2 mg/dL 12/05/21 13:50 U [place] Prot/Creat Ratio 0.12 12/05/21 13:50 COVID-19 Source Nasal/Nares 12/05/21 13:50 SARS-CoV-2 (PCR) Negative (Negative) 12/05/21 13:50 Patient ABO/Rh A Positive 12/05/21 14:05 Antibody Screen NEGATIVE 12/05/21 14:05 Subjective Interval history since last seen: Epidural is in place and patient is receiving first dose of medicine. Plan is to do VE and if advancing dilation to perform AROM to augment continued contractions. If no cervical changes will begin pitocin. KH Results Hemoglobin/Hematocrit: Hgb 11.7 g/dL (11.2-15.7) 12/05/21 14:05 Hct 35.4 % (36.0-46.0) L 12/05/21 14:05 Abnormal Lab Findings: Abnormal Labs 12/05/21 12/05/21 14:05 14:05 WBC 12.23 H Hct 35.4 L Sodium 132 L AST 11 L Alkaline Phosphatase 202 H Albumin 2.7 L
--- NOTE | 2021-12-06 11:48 | ANES.NEURP_ITS ---
Epidural/Spinal Daily Note Date Performed: 12/06/21
--- NOTE | 2021-12-06 11:48 | W.ANESEPD ---
Epidural/Spinal Daily Note Date Performed: 12/06/21
--- NOTE | 2021-12-06 11:49 | W.ANESNEU ---
Epidural/Spinal Catheter Date Performed: 12/06/21 Procedure Start: 11:15 Procedure Stop: 11:26 Requesting Provider: Celsa Ramos Procedure Location: Obstetrics Reason Performed: Labor Epidural Standard Monitors Applied: ECG, Blood Pressure, SpO2 and See EMR for corresponding vital signs Patient Position: Sitting Sedation Given (Indicate Dose Given): No Sedation given Patient Mental Status: Awake Sterility: Hand Hygiene, Surgical Cap, Surgical Mask, Sterile Gloves, Sterile Drape/Sheet and Chlorhexidine Procedure Location: L3-L4 Interspace Epidural Needle: Tuohy 18 Gauge Needle Length: 3.5 Inch Needle Approach: Midline Epidural Procedure: Skin Prepped, Sterile Drape Placed, 1% Lidocaine to skin and subcutaneous tissue with 25G needle, Tuohy Needle placed, Bone Contacted despite needle repositioning (moved to second interspace), ISABEL to Saline Used, Epidural Catheter Placed, Negative Heme and Negative CSF Flow Catheter Placed?: Catheter Placed Test Dose (Indicate Dose Given): 3ml 1.5% Lidocaine with 1:200K Epinephrine Given Loss of Resistance Depth (cm): 8 Catheter depth at skin (cm): 17 Dressing: Sorbaview Dressing Placed, Mastisol Used and Dressing reinforced with Tape Epidural Provider Bolus (Indicate Dose Given): Total Ropivacaine 0.1% with Fentanyl 2mcg/ml Given from pump. (ml) Dose:: 5 mL Additives (Indicate Dose Given ): None Infusion Medication: Medication Infusion Began Medication Infusion: Ropivacaine 0.125% with Fentanyl 2mcg/ml Maintenance Infusion Rate (ml/hour): 12 PCEA Bolus Dose (ml): 5 Block Level: N/A Paresthesia: None Ultrasound: Not Used Number of Attempts (See previous attempts in note section): 2 Procedure Tolerated: No Complications Procedure Outcome: Successful Performed By: Erin Pollock Supervised By: Jaqui Way
--- NOTE | 2021-12-06 12:01 | PGE_ITS ---
Date of service: 12/06/21 Time of Service: 12:01 Informed Consent Informed Consent: Induction of Labor and Risk,Benefits,Alternatives Discussed Pelvic Exam Dilation: 4 Effacement (%): 90 station: -1 Cervix Position: posterior Consistency: soft BISHOPS Score(Cervical Ripeness Score): 9 Contractions Monitor Mode: External Contraction Frequency(min): 2-4 Contraction Duration(sec): 30-60 Intensity: Mild/Moderate Fetus A Monitor: Novii Heart Rate Baseline: 125 Variability: Moderate (6-25 BPM) Categories: Category I Accelerations: 15 X 15 Decelerations: None Assessment and Plan Assessment and plan (1) Encounter for induction of labor: Status: Acute Assessment and plan: 1. patient is much more comfortable with epidural in place 2. Contractions continue and are moderate to palpation 3. VE 4/90/-1 mosley 9 4. Will observe for 1 hour and if contractions space will begin pitocin otherwise next VE in 1-2 hours to assess for progress. KH Objective Abnormal lab results 12/05/21 12/05/21 Range/Units 14:05 14:05 WBC 12.23 H (4.4-10.8) 10^3/uL Hct 35.4 L (36.0-46.0) % Sodium 132 L (136-145) mmol/L AST 11 L (15-37) U/L Alkaline Phosphatase 202 H (46-116) U/L Albumin 2.7 L (3.4-5.0) g/dL Temp Pulse Resp BP Pulse Ox 98.1 F 93 H 18 148/81 H 99 12/06/21 03:25 12/06/21 11:05 12/06/21 03:25 12/06/21 11:05 12/06/21 11:05 Laboratory Results WBC 12.23 10^3/uL (4.4-10.8) H 12/05/21 14:05 RBC 4.04 10^6/uL (3.93-5.22) 12/05/21 14:05 Hgb 11.7 g/dL (11.2-15.7) 12/05/21 14:05 Hct 35.4 % (36.0-46.0) L 12/05/21 14:05 MCV 88 fL (80-95) 12/05/21 14:05 MCH 29.0 pg (27.0-33.0) 12/05/21 14:05 MCHC 33.1 % (32.0-36.0) 12/05/21 14:05 RDW 14.1 % (11.7-14.6) 12/05/21 14:05 Plt Count 238 10^3/uL (130-400) 12/05/21 14:05 MPV 10.6 fL (8.0-11.0) 12/05/21 14:05 Sodium 132 mmol/L (136-145) L 12/05/21 14:05 Potassium 3.8 mmol/L (3.5-5.1) 12/05/21 14:05 Chloride 101 mmol/L (98-107) 12/05/21 14:05 Carbon Dioxide 23.3 mmol/L (21.0-32.0) 12/05/21 14:05 Anion Gap 7.7 mmol/L (3-11) 12/05/21 14:05 BUN 8 mg/dL (7-18) 12/05/21 14:05 Creatinine 0.6 mg/dL (0.55-1.02) 12/05/21 14:05 Estimated GFR/1.73 m2 >= 60.00 (mL/min/1.73m2) 12/05/21 14:05 Glucose 96 mg/dL (74-106) 12/05/21 14:05 Uric Acid 4.1 mg/dL (2.6-6.0) 12/05/21 14:05 Calcium 9.3 mg/dL (8.5-10.1) 12/05/21 14:05 Total Bilirubin 0.2 mg/dL (0.2-1.0) 12/05/21 14:05 AST 11 U/L (15-37) L 12/05/21 14:05 ALT 18 U/L (14-59) 12/05/21 14:05 Alkaline Phosphatase 202 U/L (46-116) H 12/05/21 14:05 Lactate Dehydrogenase 164 U/L (81-234) 12/05/21 14:05 Total Protein 7.2 g/dL (6.4-8.2) 12/05/21 14:05 Albumin 2.7 g/dL (3.4-5.0) L 12/05/21 14:05 Ur Random Creatinine 51.60 mg/dL 12/05/21 13:50 U Random Total Protein 6.2 mg/dL 12/05/21 13:50 U [place] Prot/Creat Ratio 0.12 12/05/21 13:50 COVID-19 Source Nasal/Nares 12/05/21 13:50 SARS-CoV-2 (PCR) Negative (Negative) 12/05/21 13:50 Patient ABO/Rh A Positive 12/05/21 14:05 Antibody Screen NEGATIVE 12/05/21 14:05 Vital Signs Reviewed: Yes Subjective Interval history since last seen: More comfortable with epidural but is able to feel pressure in her rectum with contractions. VE 4/-2 cervix is posterior but soft. Kh Results Hemoglobin/Hematocrit: Hgb 11.7 g/dL (11.2-15.7) 12/05/21 14:05 Hct 35.4 % (36.0-46.0) L 12/05/21 14:05 Abnormal Lab Findings: Abnormal Labs 12/05/21 12/05/21 14:05 14:05 WBC 12.23 H Hct 35.4 L Sodium 132 L AST 11 L Alkaline Phosphatase 202 H Albumin 2.7 L
--- NOTE | 2021-12-06 15:02 | PGE_ITS ---
Date of service: 12/06/21 Time of Service: 15:02 Informed Consent Informed Consent: Induction of Labor and Risk,Benefits,Alternatives Discussed Pelvic Exam Comments: deferred per patient request Contractions Monitor Mode: External Contraction Frequency(min): 2-4 Contraction Duration(sec): 20-60 Intensity: Moderate Fetus A Monitor: Novii Heart Rate Baseline: 120 Presentation: Vertex Variability: Moderate (6-25 BPM) Categories: Category I Accelerations: 15 X 15 Decelerations: None Assessment and Plan Assessment and plan (1) Encounter for induction of labor: Status: Acute Assessment and plan: 1. Epidural has been replaced and Nahomi is more comfortable again at this time. 2. Will defer VE at this time and reassess in 1-2 hours or prn. KH Objective Temp Pulse Resp BP Pulse Ox 99.3 F 92 H 16 122/65 99 12/06/21 13:28 12/06/21 13:28 12/06/21 13:28 12/06/21 13:28 12/06/21 11:05 Laboratory Results WBC 12.23 10^3/uL (4.4-10.8) H 12/05/21 14:05 RBC 4.04 10^6/uL (3.93-5.22) 12/05/21 14:05 Hgb 11.7 g/dL (11.2-15.7) 12/05/21 14:05 Hct 35.4 % (36.0-46.0) L 12/05/21 14:05 MCV 88 fL (80-95) 12/05/21 14:05 MCH 29.0 pg (27.0-33.0) 12/05/21 14:05 MCHC 33.1 % (32.0-36.0) 12/05/21 14:05 RDW 14.1 % (11.7-14.6) 12/05/21 14:05 Plt Count 238 10^3/uL (130-400) 12/05/21 14:05 MPV 10.6 fL (8.0-11.0) 12/05/21 14:05 Sodium 132 mmol/L (136-145) L 12/05/21 14:05 Potassium 3.8 mmol/L (3.5-5.1) 12/05/21 14:05 Chloride 101 mmol/L (98-107) 12/05/21 14:05 Carbon Dioxide 23.3 mmol/L (21.0-32.0) 12/05/21 14:05 Anion Gap 7.7 mmol/L (3-11) 12/05/21 14:05 BUN 8 mg/dL (7-18) 12/05/21 14:05 Creatinine 0.6 mg/dL (0.55-1.02) 12/05/21 14:05 Estimated GFR/1.73 m2 >= 60.00 (mL/min/1.73m2) 12/05/21 14:05 Glucose 96 mg/dL (74-106) 12/05/21 14:05 Uric Acid 4.1 mg/dL (2.6-6.0) 12/05/21 14:05 Calcium 9.3 mg/dL (8.5-10.1) 12/05/21 14:05 Total Bilirubin 0.2 mg/dL (0.2-1.0) 12/05/21 14:05 AST 11 U/L (15-37) L 12/05/21 14:05 ALT 18 U/L (14-59) 12/05/21 14:05 Alkaline Phosphatase 202 U/L (46-116) H 12/05/21 14:05 Lactate Dehydrogenase 164 U/L (81-234) 12/05/21 14:05 Total Protein 7.2 g/dL (6.4-8.2) 12/05/21 14:05 Albumin 2.7 g/dL (3.4-5.0) L 12/05/21 14:05 Ur Random Creatinine 51.60 mg/dL 12/05/21 13:50 U Random Total Protein 6.2 mg/dL 12/05/21 13:50 U [place] Prot/Creat Ratio 0.12 12/05/21 13:50 COVID-19 Source Nasal/Nares 12/05/21 13:50 SARS-CoV-2 (PCR) Negative (Negative) 12/05/21 13:50 Patient ABO/Rh A Positive 12/05/21 14:05 Antibody Screen NEGATIVE 12/05/21 14:05 Vital Signs Reviewed: Yes Subjective Interval history since last seen: Feeling more comfortable since epidural was replaced. She declines VE at this time. She would like to rest for an hour. Nursing reports + bloody show when changing positions after epidural. KH Results Hemoglobin/Hematocrit: Hgb 11.7 g/dL (11.2-15.7) 12/05/21 14:05 Hct 35.4 % (36.0-46.0) L 12/05/21 14:05 Abnormal Lab Findings: Abnormal Labs 12/05/21 12/05/21 14:05 14:05 WBC 12.23 H Hct 35.4 L Sodium 132 L AST 11 L Alkaline Phosphatase 202 H Albumin 2.7 L
--- NOTE | 2021-12-06 15:06 | W.ANESNEU ---
Epidural/Spinal Catheter Date Performed: 12/06/21 Procedure Start: 13:31 Procedure Stop: 13:48 Requesting Provider: Celsa Ramos Procedure Location: Obstetrics Reason Performed: Labor Epidural Standard Monitors Applied: ECG, Blood Pressure, SpO2 and See EMR for corresponding vital signs Patient Position: Sitting Sedation Given (Indicate Dose Given): No Sedation given Patient Mental Status: Awake Sterility: Hand Hygiene, Surgical Cap, Surgical Mask, Sterile Gloves and Chlorhexidine Procedure Location: L2-L3 Interspace Epidural Needle: Tuohy 18 Gauge Needle Length: 3.5 Inch Needle Approach: Midline Epidural Procedure: Skin Prepped, Sterile Drape Placed, 1% Lidocaine to skin and subcutaneous tissue with 25G needle, ISABEL to Saline Used, Epidural Catheter Placed and Negative CSF Flow Catheter Placed?: Catheter Placed Test Dose (Indicate Dose Given): 3ml 1.5% Lidocaine with 1:200K Epinephrine Given Loss of Resistance Depth (cm): 8 Catheter depth at skin (cm): 15 Dressing: Sorbaview Dressing Placed, Mastisol Used and Dressing reinforced with Tape Epidural Provider Bolus (Indicate Dose Given): Total Bupivacaine 0.0625% with Fentanyl 2mcg/ml Given from pump (ml) Dose:: 5ml at 1348; 5mL at 1455 Additives (Indicate Dose Given ): None Infusion Medication: Medication Infusion Began Medication Infusion: Ropivacaine 0.125% with Fentanyl 2mcg/ml Maintenance Infusion Rate (ml/hour): 12 PCEA Bolus Dose (ml): 5 Block Level: N/A Paresthesia: None Ultrasound: Not Used Number of Attempts (See previous attempts in note section): 1 Procedure Tolerated: No Complications Procedure Outcome: Successful Procedure Comment:: denser block noted to the right side per patient. Performed By: Erin Pollock Supervised By: Jaqui Way
--- NOTE | 2021-12-06 16:42 | W.PM.OBNL1 ---
Date of service: 12/06/21 Time of Service: 16:42 Informed Consent Informed Consent: Induction of Labor and Risk,Benefits,Alternatives Discussed Pelvic Exam Dilation: 7 Effacement (%): 100 station: -1 Cervix Position: anterior Consistency: soft Comments: attempted AROM but membranes are tight against head and no return is noted with attempt. KH Contractions Monitor Mode: External Contraction Frequency(min): 2-5 Contraction Duration(sec): 40=60 Intensity: Moderate/Strong Fetus A Monitor: Novii Heart Rate Baseline: 120 Presentation: Cephalic Variability: Moderate (6-25 BPM) Categories: Category I Accelerations: 15 X 15 Decelerations: Early Assessment and Plan Assessment and plan (1) Encounter for induction of labor: Status: Acute Assessment and plan: 1. Patient is comfortable with epidural and agrees to VE and pitocin augmentation of her labor 2. Will begin pitocin at 2 mu and expect NVD. 3. Will allow for laboring down as long as patient and baby are doing well. 4. Update has been given to Dr. Leahy, OB physician valve repairer reclamation. Objective Temp Pulse Resp BP Pulse Ox 98.1 F 100 H 18 129/73 99 12/06/21 15:12 12/06/21 15:12 12/06/21 15:12 12/06/21 15:12 12/06/21 11:05 Laboratory Results WBC 12.23 10^3/uL (4.4-10.8) H 12/05/21 14:05 RBC 4.04 10^6/uL (3.93-5.22) 12/05/21 14:05 Hgb 11.7 g/dL (11.2-15.7) 12/05/21 14:05 Hct 35.4 % (36.0-46.0) L 12/05/21 14:05 MCV 88 fL (80-95) 12/05/21 14:05 MCH 29.0 pg (27.0-33.0) 12/05/21 14:05 MCHC 33.1 % (32.0-36.0) 12/05/21 14:05 RDW 14.1 % (11.7-14.6) 12/05/21 14:05 Plt Count 238 10^3/uL (130-400) 12/05/21 14:05 MPV 10.6 fL (8.0-11.0) 12/05/21 14:05 Sodium 132 mmol/L (136-145) L 12/05/21 14:05 Potassium 3.8 mmol/L (3.5-5.1) 12/05/21 14:05 Chloride 101 mmol/L (98-107) 12/05/21 14:05 Carbon Dioxide 23.3 mmol/L (21.0-32.0) 12/05/21 14:05 Anion Gap 7.7 mmol/L (3-11) 12/05/21 14:05 BUN 8 mg/dL (7-18) 12/05/21 14:05 Creatinine 0.6 mg/dL (0.55-1.02) 12/05/21 14:05 Estimated GFR/1.73 m2 >= 60.00 (mL/min/1.73m2) 12/05/21 14:05 Glucose 96 mg/dL (74-106) 12/05/21 14:05 Uric Acid 4.1 mg/dL (2.6-6.0) 12/05/21 14:05 Calcium 9.3 mg/dL (8.5-10.1) 12/05/21 14:05 Total Bilirubin 0.2 mg/dL (0.2-1.0) 12/05/21 14:05 AST 11 U/L (15-37) L 12/05/21 14:05 ALT 18 U/L (14-59) 12/05/21 14:05 Alkaline Phosphatase 202 U/L (46-116) H 12/05/21 14:05 Lactate Dehydrogenase 164 U/L (81-234) 12/05/21 14:05 Total Protein 7.2 g/dL (6.4-8.2) 12/05/21 14:05 Albumin 2.7 g/dL (3.4-5.0) L 12/05/21 14:05 Ur Random Creatinine 51.60 mg/dL 12/05/21 13:50 U Random Total Protein 6.2 mg/dL 12/05/21 13:50 U [place] Prot/Creat Ratio 0.12 12/05/21 13:50 COVID-19 Source Nasal/Nares 12/05/21 13:50 SARS-CoV-2 (PCR) Negative (Negative) 12/05/21 13:50 Patient ABO/Rh A Positive 12/05/21 14:05 Antibody Screen NEGATIVE 12/05/21 14:05 Subjective Interval history since last seen: Nahomi is so much more comfortable with her current epidural. She is able to tolerate VE well and does not feel the hip and buttocks pain that she did prior to this. Contractions space out at times to 4 or 5 minutes apart and patient is agreeable to pitocin augmentation. VE 7/100/-1. + show. KH Results Hemoglobin/Hematocrit: Hgb 11.7 g/dL (11.2-15.7) 12/05/21 14:05 Hct 35.4 % (36.0-46.0) L 12/05/21 14:05 Abnormal Lab Findings: Abnormal Labs 12/05/21 12/05/21 14:05 14:05 WBC 12.23 H Hct 35.4 L Sodium 132 L AST 11 L Alkaline Phosphatase 202 H Albumin 2.7 L
[2021-12-06] MEDS: Oxytocin/Normal Saline 30 UNIT/500 ML BAG 2 UNITS IV (16:52)
[2021-12-06] MEDS: Lactated Ringers 1,000 ML 125 ML IV (17:39)
--- NOTE | 2021-12-06 18:57 | W.PM.OBNL1 ---
Date of service: 12/06/21 Time of Service: 18:58 Informed Consent Informed Consent: Induction of Labor and Risk,Benefits,Alternatives Discussed Pelvic Exam Dilation: 9.5 Effacement (%): 100 station: 0 Contractions Monitor Mode: External Contraction Frequency(min): 2-5 Contraction Duration(sec): 30-60 Intensity: Moderate/Strong Fetus A Monitor: Novii Heart Rate Baseline: 120 Variability: Moderate (6-25 BPM) Accelerations: 15 X 15 Decelerations: Variable (mild and irregular in timing lasting 15 seconds or less with iris to 90) Assessment and Plan Assessment and plan (1) Encounter for induction of labor: Status: Acute Assessment and plan: 1. vallejo placed 2. pitocin augmentation at 4 mu and will encourage increase 3. Discussed laboring down until baby is lower in pelvis or urge to push occurs. Patient prefers this as she is very comfortable without any urge to push. 4. Expect NVD. 5. Have reviewed active management of third stage with patient. KH Objective Temp Pulse Resp BP Pulse Ox 98.4 F 103 H 18 122/73 99 12/06/21 17:33 12/06/21 17:33 12/06/21 17:33 12/06/21 17:33 12/06/21 11:05 Laboratory Results WBC 12.23 10^3/uL (4.4-10.8) H 12/05/21 14:05 RBC 4.04 10^6/uL (3.93-5.22) 12/05/21 14:05 Hgb 11.7 g/dL (11.2-15.7) 12/05/21 14:05 Hct 35.4 % (36.0-46.0) L 12/05/21 14:05 MCV 88 fL (80-95) 12/05/21 14:05 MCH 29.0 pg (27.0-33.0) 12/05/21 14:05 MCHC 33.1 % (32.0-36.0) 12/05/21 14:05 RDW 14.1 % (11.7-14.6) 12/05/21 14:05 Plt Count 238 10^3/uL (130-400) 12/05/21 14:05 MPV 10.6 fL (8.0-11.0) 12/05/21 14:05 Sodium 132 mmol/L (136-145) L 12/05/21 14:05 Potassium 3.8 mmol/L (3.5-5.1) 12/05/21 14:05 Chloride 101 mmol/L (98-107) 12/05/21 14:05 Carbon Dioxide 23.3 mmol/L (21.0-32.0) 12/05/21 14:05 Anion Gap 7.7 mmol/L (3-11) 12/05/21 14:05 BUN 8 mg/dL (7-18) 12/05/21 14:05 Creatinine 0.6 mg/dL (0.55-1.02) 12/05/21 14:05 Estimated GFR/1.73 m2 >= 60.00 (mL/min/1.73m2) 12/05/21 14:05 Glucose 96 mg/dL (74-106) 12/05/21 14:05 Uric Acid 4.1 mg/dL (2.6-6.0) 12/05/21 14:05 Calcium 9.3 mg/dL (8.5-10.1) 12/05/21 14:05 Total Bilirubin 0.2 mg/dL (0.2-1.0) 12/05/21 14:05 AST 11 U/L (15-37) L 12/05/21 14:05 ALT 18 U/L (14-59) 12/05/21 14:05 Alkaline Phosphatase 202 U/L (46-116) H 12/05/21 14:05 Lactate Dehydrogenase 164 U/L (81-234) 12/05/21 14:05 Total Protein 7.2 g/dL (6.4-8.2) 12/05/21 14:05 Albumin 2.7 g/dL (3.4-5.0) L 12/05/21 14:05 Ur Random Creatinine 51.60 mg/dL 12/05/21 13:50 U Random Total Protein 6.2 mg/dL 12/05/21 13:50 U [place] Prot/Creat Ratio 0.12 12/05/21 13:50 COVID-19 Source Nasal/Nares 12/05/21 13:50 SARS-CoV-2 (PCR) Negative (Negative) 12/05/21 13:50 Patient ABO/Rh A Positive 12/05/21 14:05 Antibody Screen NEGATIVE 12/05/21 14:05 Vital Signs Reviewed: Yes Subjective Interval history since last seen: remains very comfortable since epidural. unable to void independently so vallejo catheter is placed at this time with good return. patient is leaking clear fluid in small amounts. Denies rectal pressure but hip is a little sore. Perfers to labor down at this time as long as she and baby are doing well. KH Results Hemoglobin/Hematocrit: Hgb 11.7 g/dL (11.2-15.7) 12/05/21 14:05 Hct 35.4 % (36.0-46.0) L 12/05/21 14:05 Abnormal Lab Findings: Abnormal Labs 12/05/21 12/05/21 14:05 14:05 WBC 12.23 H Hct 35.4 L Sodium 132 L AST 11 L Alkaline Phosphatase 202 H Albumin 2.7 L
[2021-12-06] MEDS: Lidocaine 1% Multi-Dose 20 ML VIAL IJ (22:30)
--- NOTE | 2021-12-06 22:51 | OBVDS_ITS ---
Date of service: 12/06/21 Time of Service: 22:52 OB Labor/ Delivery Information Baby A Delivery Delivery Method: Spontaneaous Presentation: Vertex Cephalic Position: Vertex Vertex Position: Right Occipital Anterior Cord Description-Baby A: 3 Vessels, Nuchal Cord (X1 loose, baby delivered through cord. delayed cord clamping for 120 seconds) and Clamped/Cut Amniotic Fluid: Clear Estimated Blood Loss: 800 of blood noted, some was prior to delivery. KH Delivery Outcome: Liveborn Complications: none Infant Transferred: Remains with Mother Providers Nurse Telephone Station Repairer: Celsa Ramos Nurse: Stephanie Temple Nurse: Virginia Swift Labor/Delivery Information Number of Babies in Womb: 1 Steroids Given: None Reason Steroids Not Administered: N/A Group Beta Strep: Negative Antibiotics Administered: No Rubella Status: Immune Blood Type: A+ Varicella Immunity: Immune Medication in Delivery: pit Shoulder Dystocia: No Note: FHR tracing was CAT 1 for most of first stage of labor with some episodes of CAT II tracing due to variable decelerations which were not consistent and management with position changes. Patient progressed to 10 cm with good relief from epidural. Following 2 hours of laboring down after being 10 cm, patient began to push with excellent effort. [place] catheter was removed. Second stage huddle was performed, plan for active management of third stage with IV pitocin discussed. Second stage was 44 minutes with baby girl delivering ANGELLA over 2nd degree midline perineal laceration at 2209. Nuchal cord noted and baby was delivered through it onto Mother's abdomen for skin to skin. Cord was clamped and cut by Franco COLLIER, after 120 seconds. 3 vessels noted. Cord blood was obtained. Placenta delivered at 2216, jones mechanism, intact. Fundus firmed to U-2 with pitocin infusion. score 8 at 1 minute and 9 at 5 minutes. Positive family bonding noted. Laceration was infilltrated with 1% lidocaine and then repaired with 3.0 Vicryl and Chromic X1 each. QBL 800 cc however some of that loss was prior to placenta delivering. Sponge, needle and instrument count are correct. Mother and baby are in satisfactory condition. Baby girl Sara Mariee will be breast fed. The couple plan condoms for contraception. Debrief is done with team prior to veterinary parasitologist leaving room. Expect normal PP course. Baby's weight 6lb 15oz. KH Stages of Labor Complete Dilatation Date: 12/06/21 Complete Dilatation Time: 21:25 ROM Baby A: 12/06/21 Delivery Date-Baby A: 12/06/21 Infant Delivery Time-Baby A: 22:09 Labor Stage 2 Duration: 44 minutes Placenta Delivery Date-Baby A: 12/06/21 Placenta Delivery Time-Baby A: 22:16 Labor-Stage 3 Duration: 7 minutes Placenta Cultured: No Placenta Status: Delivered Baby A Infant Gender: Female Gestational Status: Term (39-41.6 wks) Gestational Age in Weeks/Days: 41 Weeks and 2 Days Score-1 Minute Interval(Baby A) Heart Rate-1 minute: 100 BPM or Greater Respiratory Effort- 1 minute: Slow Respiration/Weak Cry Muscle Tone-1 minute: Active Movement Reflex Response-1 minute: Prompt Response Color-1 minute: Bluish Hands or Feet Total Score-1 minute: 8 Score-5 Minute Interval(Baby A) Heart Rate- 5 minute: 100 BPM or Greater Respiratory Effort-5 minute: Spontaneous/Strong Cry Muscle Tone-5 minute: Active Movement Reflex Response-5 minute: Prompt Response Color-5 minute: Bluish Hands or Feet Total Score- 5 minute: 9
[2021-12-07 00:02] VITALS: BP 113/69; PULSE 118
[2021-12-07 00:32] VITALS: BP 116/72; PULSE 105
[2021-12-07 01:35] VITALS: BP 103/70; PULSE 103
[2021-12-07 07:14] LABS: HCT 26.5 % (36.0-46.0); MCH 29.7 pg (27.0-33.0); MCV 88 fL (80-95); MPV 10.4 fL (8.0-11.0); Platelet Count 198 10^3/uL (130-400); RBC 3.03 10^6/uL (3.93-5.22); RDW 14.2 % (11.7-14.6); RDW-SD 45.9 fL; WBC 16.53 10^3/uL (4.4-10.8)
[2021-12-07 07:30] VITALS: BP 114/79; PULSE 98; RESP 16; TEMP 36.9; O2SAT 99
[2021-12-07] MEDS: Dibucaine 1% 28 GM TUBE TP ×2 (07:40→21:02)
[2021-12-07] MEDS: Docusate Sodium 100 MG CAP PO (07:40)
[2021-12-07] MEDS: Hamamelis Leaf/Glycerin 100 EACH BOX PR (07:40)
[2021-12-07] MEDS: Acetaminophen 325 MG TAB 650 MG PO ×3 (07:40→22:47)
[2021-12-07] MEDS: Ibuprofen 600 MG TAB PO ×3 (08:00→22:47)
--- NOTE | 2021-12-07 08:37 | W.ANESPOSTOP ---
Postoperative Evaluation Date, Time and Location Date Performed: 12/07/21 Time Performed: 08:37 Patient Location: Obstetrics Vital Signs Most Recent Imported Vital Signs: Most Recent Vital Signs Temp Pulse Resp BP Pulse Ox 36.9 C 98 H 16 114/79 99 12/07/21 07:30 12/07/21 07:30 12/07/21 07:30 12/07/21 07:30 12/07/21 07:30 Pain Score Most Recent Pain Score: Most Recent Pain Score Pain Level [Lower Abdomen] 5 12/07/21 07:30 Pain Level 0 12/05/21 14:09 Assessment Mental Status: Awake (Alert & Oriented to Patient Baseline) Airway and Respiratory Function: Patent airway with normal (patient baseline) respiratory exam Cardiovascular Function: Hemodynamically Stable Hydration Status: Adequately Hydrated Nausea & Vomiting: No Nausea or Vomiting Pain: Pain is tolerable per patient (Ibuprofen for discomfort. ) Peripheral Nerve Block: Patient did not receive a nerve block
--- NOTE | 2021-12-07 08:42 | W.PM.OBPNV1 ---
Date of service: 12/07/21 Time of Service: 08:43 Assessment and Plan Assessment and plan (1) care following vaginal delivery: Status: Acute Assessment and plan: 1. Continue present management 2. Plan discharge 12/08/21 (2) Lactating mother: Status: Acute Assessment and plan: 1. reviewed that breast feeding attempts should be frequent today and to ask for assistance 2. has worked with last evening after delivery (3) anemia: Status: Acute Assessment and plan: 1. will begin ferrous sulfate twice daily, is doing own ADL's without difficulty. Subjective Subjective Interval history: Feeling well. Out of bed doing own ADL's, voiding without difficulty. Tolerating regular diet well. Reports minimal flow. Perineum tender but has tuck and cream to help with discomfort. Breast feeding is slow to start but plans to be working on it today all day. Plan discharge tomorrow. Patient's Mood: congruent, happy with experience. baby status: Doing well, Rooming in and Strong Bonding Observed Exam Physical Exam Vital signs: Temp Pulse Resp BP Pulse Ox 98.5 F 98 H 16 114/79 99 12/07/21 07:30 12/07/21 07:30 12/07/21 07:30 12/07/21 07:30 12/07/21 07:30 Vital Signs Reviewed: Yes Constitutional Constitutional: no acute distress, average body habitus and cooperative HEENT Exam HEENT Exam: Normal Neck Exam Neck Exam: Normal (normal visual inspection) Respiratory Exam Respiratory Exam: Normal Cardiovascular Exam Cardiovascular Exam: Normal Abdominal Exam Abdomen: Other (normal exam) Fundal Exam Fundus: Below Umbilicus and Firm Comment: small lochia noted. Rectal Exam Rectal Exam: Not Done Exam Perineum: Edematous (mild edema, ice is on), Normal and Repair Intact Extremities Exam Extremity Exam: Normal (denies calf tenderness) and Full ROM Back/Spine/Pelvis Exam Back Exam: Normal Skin Exam Skin Exam: Normal Neurological Exam Neurological Exam: Normal Psychiatric Exam Psychiatric Exam: Normal Results Hemoglobin/Hematocrit: Hgb 9.0 g/dL (11.2-15.7) L D 12/07/21 06:58 Hct 26.5 % (36.0-46.0) L 12/07/21 06:58 Abnormal Lab Findings: Abnormal Labs 12/05/21 12/05/21 12/07/21 14:05 14:05 06:58 WBC 12.23 H 16.53 H RBC 3.03 L Hgb 9.0 L D Hct 35.4 L 26.5 L Sodium 132 L AST 11 L Alkaline Phosphatase 202 H Albumin 2.7 L
--- NOTE | 2021-12-07 11:06 | W.ANESPOSTOP ---
Postoperative Evaluation Date, Time and Location Date Performed: 12/07/21 Time Performed: 11:04 Patient Location: Obstetrics Vital Signs Most Recent Imported Vital Signs: Most Recent Vital Signs Temp Pulse Resp BP Pulse Ox 36.9 C 98 H 16 114/79 99 12/07/21 07:30 12/07/21 07:30 12/07/21 07:30 12/07/21 07:30 12/07/21 07:30 Most Recent Vital Signs Temp Pulse Resp BP Pulse Ox 36.9 C 98 H 16 114/79 99 12/07/21 07:30 12/07/21 07:30 12/07/21 07:30 12/07/21 07:30 12/07/21 07:30 Pain Score Most Recent Pain Score: Most Recent Pain Score Pain Level [Lower Abdomen] 5 12/07/21 07:30 Pain Level 0 12/05/21 14:09 Assessment Mental Status: Awake (Alert & Oriented to Patient Baseline) Airway and Respiratory Function: Patent airway with normal (patient baseline) respiratory exam Cardiovascular Function: Hemodynamically Stable Hydration Status: Adequately Hydrated Nausea & Vomiting: No Nausea or Vomiting Pain: Pain is tolerable per patient Peripheral Nerve Block: Patient did not receive a nerve block
[2021-12-07 20:25] VITALS: BP 115/72; PULSE 100; RESP 17; TEMP 36.8; O2SAT 99
[2021-12-07] MEDS: Ferrous Sulfate 325 MG TAB PO (21:02)
[2021-12-08] MEDS: Ibuprofen 600 MG TAB PO (07:09)
[2021-12-08] MEDS: Acetaminophen 325 MG TAB 650 MG PO (07:09)
[2021-12-08 07:57] VITALS: BP 105/65; PULSE 75; RESP 16; TEMP 36.7; O2SAT 98
--- NOTE | 2021-12-08 08:43 | DSE_ITS ---
Date of service: 12/08/21 Time of Service: 08:43 DS: Diagnosis Discharge Diagnosis (1) care following vaginal delivery: Status: Acute Asessment and Plan: 1. post warning signs reviewed, will discharge to home to return in 2 and 6 weeks for scheduled visits in office and prn as needed. 2. Discussed avoiding intercourse until after 6 week PP visit. Plans condoms for contraception. (2) Lactating mother: Status: Acute Asessment and Plan: 1. Has feeding plan now, using nipple shield. Will follow up with Pediatrics as scheduled. (3) anemia: Status: Acute Asessment and Plan: 1. Will continue to take ferrous sulfate and vitamin until at least 2 weeks PP 2. Doing own ADL's without difficulty. Discharge Plan Disposition Patient Disposition: HOME Condition: Good Discharge Details Reason For Visit: Post Term Admit Date/Time: 12/05/21 11:29 Admit Provider: Celsa Ramos Attending Provider: Celsa Ramos Primary Care Provider: Unknown,Unknown Hospital Course Hospital Course: Induction of labor for post dates . Labor progressed with 50 mcg PO cytotec X 1, cervidil X 12 hours and then after good pain relief with epidural pitocin was used to augment labor. Baby delivered vaginally with good pushing effort. 2nd degree midline perineal laceration was repaired under 1% lidocaine in usual fashion. EBL 800 cc but patient did well . Discharged to home in satisfactory condition. She will use OTC Ibuprofen or tylenol for discomfort and continue vitamin and ferrous sulfate. Nahomi is breast feeding with aide of nipple shield and will follow up with Pediatrics per plan. She will RTO in 2 weeks for first PP visit and again in 6 weeks. She plans to use condoms for contraception once sexually active. Baby girl Sara Leigh weighed 6 lb 15 oz. Home Meds and New Rx's Prescriptions: Continued cholecalciferol (vitamin D3) 25 mcg (1,000 unit) capsule 25 mcg PO DAILY docusate sodium [Colace] 100 mg capsule 100 mg PO BID Qty: 60 4RF ferrous sulfate [FeroSul] 325 mg (65 mg iron) tablet 325 mg PO Q OTHER DAY One A Day Women's DHA 28 mg iron- 800 mcg combo pack 1 pkg PO DAILY choline 250 mg tablet 110 mg PO DAILY magnesium 200 mg tablet 400 mg PO DAILY Discontinued aspirin 81 mg tablet,delayed release (DR/EC) 81 mg PO DAILY Qty: 90 3RF Rx Instructions: 1 tab daily, alternating with 2 tabs every other day Discharge Instructions Activity:: Activity as Tolerated Equipment/Supplies:: No Equipment Needed Diet:: As Tolerated Discharge Orders Discharge Orders: Discharge Order (Routine); Ordered 12/08/21 Ordered By: Celsa Ramos OB:DS Summary Summary Vaginal Delivery Method: Spontaneaous Episiotomy Description: None Laceration Description: Perineal Laceration Extension: Second Degree Contraception Discussed Contraception Discussed: Yes (condoms) Contraceptive Plan: Foam/Condoms, Infant Gender-Baby A: Female weight: 6 lb 15.466 oz Status at Discharge Functional status at discharge: independent ambulation Overall status at discharge: patient is back to baseline Mental Status: mental status grossly normal Speech and Movement: speech and movement normal Mood: congruent mood Affect: normal affect Time Spent with Patient providing and/or coordinating discharge services: Less than 30 minutes Exam Physical Exam Vital signs: Temp Pulse Resp BP Pulse Ox 98.1 F 75 16 105/65 98 12/08/21 07:57 12/08/21 07:57 12/08/21 07:57 12/08/21 07:57 12/08/21 07:57 PFSH All Active Problems (Updated 12/07/21 @ 08:47 by Celsa Ramos CNM) anemia (Acute) Lactating mother (Acute) care following vaginal delivery (Acute) Body mass index [BMI] 38.0-38.9, adult (Acute) (Acute) Medical History History of anxiety Social History Smoking/Tobacco Use Status: Never Smoking risk assessment performed?: Yes Alcohol Intake: never Drug use: Never Household members: spouse Housing: house Number of Children: 0 current occupation: Beauty Specialist Sexually active: Yes Do you think of yourself as: straight/heterosexual Current gender identity: female What is your relationship status?: Panel score (0-1 are the most socially isolated patients): 1 Darcy/Amish: Oriental Orthodox Agree to transfusion: Yes Do you feel safe at home: Yes Do you feel safe in your relationship?: Yes Female Reproductive History Menstrual Age of Menarche: 17 Duration of menses: 3-5 days History History 1 Para 0 Hx # Term Pregnancies 0 Multiple births 0 Hx # Pregnancies 0 Ectopic pregnancies 0 AB induced 0 Hx Number of Living Children 0 AB spontaneous 0 DS: Data Vitals/I&O Vitals and I&O: Vital Signs Temperature 98.1 F 12/08/21 07:57 Pulse 75 12/08/21 07:57 Pulse Rhythm Regular 12/08/21 08:02 Respiratory Rate 16 12/08/21 07:57 Respiratory Depth Normal 12/08/21 08:02 Blood Pressure 105/65 12/08/21 07:57 Blood Pressure Mean 78 12/08/21 07:57 Pulse Oximetry 98 12/08/21 07:57 Oxygen Delivery Method Room Air 12/05/21 14:09 Oxygen Flow Rate 0 12/05/21 14:09 Pain Level 5 12/07/21 07:30 Comment 12/06/21 11:05 Intake & Output 12/07/21 12/07/21 12/08/21 11:59 23:59 11:59 Intake Total 1000 / 1000 Output Total 900 / 900 Balance 100 / 100 Intake: IV 1000 / 1000 Output: Urine 850 / 850 Blood 50 / 50 Other: Urine Color Yellow Yellow Yellow
[2021-12-08] MEDS: Docusate Sodium 100 MG CAP PO (09:00)
[2021-12-08] MEDS: Ferrous Sulfate 325 MG TAB PO (09:00)
== END 2021-12-08 12:40 | disposition home or self-care (01) | DRG 807 ==
PROVIDERS: Admitting Provider Advanced Practice Midwife; Visit Provider Advanced Practice Midwife
DX: O48.0 Post-term pregnancy (principal); Z37.0 Single live birth; O70.1 Second degree perineal laceration during delivery; O69.81X0 Labor and delivery complicated by cord around neck, without compression, not applicable or unspecified; O99.02 Anemia complicating childbirth; D64.9 Anemia, unspecified; Z3A.41 41 weeks gestation of pregnancy
CPT/HCPCS: 36415; 80053; 85027; 86850; 86900; 86901; 87635; 82565; 83615; 84156; 84550; J2405; J3490

== ENCOUNTER 2021-12-20 03:46 | Outpatient (CLI) | payer BC, SELFPAY ==
[2021-12-20 13:51] LABS: TSH (W/Ref FT4) 1.18 uIU/mL (0.36-3.74)
[2021-12-20 22:41] LABS: Estradiol 19 pg/mL (See Note)
[2022-01-04 12:35] LABS: Testosterone, Free <0.13 ng/dL (<0.13-1.06); Testosterone, Total 12 ng/dL (8-60)
== END 2021-12-20 03:47 | disposition home or self-care (01) ==
LOC: LBO 03:47
PROVIDERS: Visit Provider Advanced Practice Midwife
DX: O92.79 Other disorders of lactation (principal); Z39.2 Encounter for routine postpartum follow-up; F41.8 Other specified anxiety disorders
CPT/HCPCS: 36415; 84402; 84403; 82670; 84443

== ENCOUNTER 2022-02-01 02:04 | Outpatient (CLI) | payer BC, SELFPAY ==
--- OUTSIDE RECORDS SUMMARY | 2022-02-01 02:05 | XMS_ITS | Encounter Summary ---
:1990 Demographics Home Phone Preferred Language Unknown Marital Status Unknown Sabianist Affiliation Unknown Race Unknown Ethnic Group Unknown Author Organization [facility] Address [address] [place] [address] Care Team Providers Name Role Phone Unavailable Primary Care Provider Unavailable Encounter Details Date Type Department Care Team Description 12/20/2021 Lab Requisition [facility] Outr Resulting Lab, Pathology & Laboratory Provider [facility] [address] [place] [address] Social History Tobacco Use Types Packs/Day Years Used Date Never Assessed Sex Assigned at Date Recorded Not on file documented as of this encounter Plan of Treatment Not on filedocumented as of this encounter Procedures Procedure Name Priority Date/Time Associated Diagnosis Comme nts ESTRADIOL, ADULTS Routine 12/20/2021 12:53 Result s for this EDT procedure are i n the results section. documented in this encounter Results ESTRADIOL, ADULTS (12/20/2021 12:53 EDT) Estradiol 19 See Note pg/mL [facility] Comment: LABORATORY SERVICES NOTE: FEMALE REFERENCE RANGES: MENSTRUATING ? By cycle day relative to LH peak Follicular ?(-12 to -4 days) ??20-144 pg/mL Midcycle ?(-3 to +2 days) ?? 64-357 pg/mL Luteal ?(+4 t0 +12 days) ??56-214 pg/mL POSTMENOPAUSAL ?<32 pg/mL *Cross reactivity with Fulve strant could lead to a falsely elevated estradiol result in patients treated with this drug. Specimen Blood - Venous blood (substance) Performing Organization Address City/State/ZIP Code Phon e Number [facility] [address] [place] [address] SERVICES documented in this encounter Visit Diagnoses Not on filedocumented in this encounter
--- OUTSIDE RECORDS SUMMARY | 2022-02-01 02:05 | XMS_ITS | Clinical Summary ---
:1990 Demographics Home Phone Preferred Language Unknown Marital Status Unknown Hoahaoism Affiliation Unknown Race Unknown Ethnic Group Unknown Author Organization [facility] Address [address] [place] [address] Care Team Providers Name Role Phone Unavailable Primary Care Provider Unavailable Encounters Date Type Specialty Care Team Description 12/20/2021 Lab Requisition Clinical Laboratory Outr Resulting Lab , Provider from Last 3 Months Social History Tobacco Use Types Packs/Day Years Used Date Never Assessed Sex Assigned at Date Recorded Not on file Plan of Treatment Health Maintenance Due Date Last Done Comments COVID-19 Vaccine (1) 1997 Hepatitis C Screen Completed 07/02/2021 Procedures Procedure Name Priority Date/Time Associated Diagnosis Comme nts ESTRADIOL, ADULTS Routine 12/20/2021 12:53 Result s for this EDT procedure are i n the results section. from Last 3 Months Results ESTRADIOL, ADULTS (12/20/2021 12:53 EDT) Estradiol 19 See Note pg/mL [facility] Comment: LABORATORY SERVICES NOTE: FEMALE REFERENCE RANGES: [...] Organization Address City/State/ZIP Code Phon e Number [facility] [address] [place] [address] SERVICES from Last 3 Months
--- OUTSIDE RECORDS SUMMARY | 2022-02-01 02:05 | XMS_ITS | Encounter Summary ---
:1990 Demographics Home Phone Preferred Language Unknown Marital Status Unknown Jain Affiliation Unknown Race Unknown Ethnic Group Unknown Author Organization [facility] Address [address] [place] [address] Care Team Providers Name Role Phone Unavailable Primary Care Provider Unavailable Encounter Details Date Type Department Care Team Description 07/03/2021 Lab Requisition [facility] Outr Resulting Lab, Pathology & Laboratory Provider [facility] [address] [place] [address] Social History Tobacco Use Types Packs/Day Years [...] Pathologist Sig nature Gonococcus Result Negative Negative [facility] Chlamydia Result Negative Negative [facility] Specimen Urine - Urine, Initial Void Narrative [facility] - 07/04/2021 15:04 EST A first catch urine specimen is acceptab le for detection of Gonorrhea and Chlamydia, but might detect up to 10% fewer infecti ons when compared with vaginal and endocervical swab samples. Performing Organization Address City/State/ZIP Code Phon e Number [facility] [address] [place] [address] SERVICES documented in this encounter Visit Diagnoses Not on filedocumented in this encounter
[2022-02-01 10:07] LABS: FREE T4 0.78 ng/dL (0.76-1.46); TSH 1.29 uIU/mL (0.36-3.74)
[2022-02-01 19:10] LABS: T3,Free 3.3 pg/mL (2.8-5.3)
[2022-02-05 00:16] LABS: 25-Hydroxy D Total 43 ng/mL; 25-Hydroxy D2 <4.0 ng/mL; 25-Hydroxy D3 43 ng/mL
== END 2022-02-01 02:05 | disposition home or self-care (01) ==
LOC: LBO 02:04
PROVIDERS: Visit Provider Advanced Practice Midwife
DX: F43.23 Adjustment disorder with mixed anxiety and depressed mood (principal)
CPT/HCPCS: 36415; 82306; 84439; 84443; 84481

== ENCOUNTER 2022-04-13 16:39 | Outpatient (REF) | payer BC, SELFPAY | END 2022-04-13 16:40 | disposition home or self-care (01) | LOC: LBN 16:39 | PROVIDERS: PCP Nurse Practitioner Adult Health; Visit Provider Nurse Practitioner Family | DX: N39.0 Urinary tract infection, site not specified (principal) | CPT/HCPCS: 87086 ==

== ENCOUNTER 2022-04-14 16:55 | Emergency (ER) | payer BC, SELFPAY ==
[2022-04-14 17:05] VITALS: BP 109/80; PULSE 108; RESP 18; TEMP 37.1; O2SAT 98
--- NOTE | 2022-04-14 17:36 | ED.GENADUL_ITS ---
Discharge Plan Disposition Patient Disposition: Home Condition: Stable Discharge Details Clinical Impression: Nausea, Diarrhea Primary Care Provider: Nancy Hoyt ED Provider: Sai Johnson Home Meds and New Rx's Prescriptions: New prochlorperazine maleate [Compazine] 10 mg tablet 10 mg PO TID PRN (Reason: nausea and vomiting) Qty: 30 0RF Continued cholecalciferol (vitamin D3) 25 mcg (1,000 unit) capsule 2,000 unit PO DAILY ferrous sulfate [FeroSul] 325 mg (65 mg iron) tablet 325 mg PO Q OTHER DAY docusate sodium [Colace] 100 mg capsule 100 mg PO BID PRN sertraline 25 mg tablet 50 mg PO DAILY Qty: 90 3RF ondansetron HCl 4 mg tablet 4 mg PO Q6H PRN (Reason: nausea and vomiting) Qty: 4 0RF Rx Instructions: May take 1 tab every 6 hours as needed for nausea One A Day Women's DHA 28 mg iron- 800 mcg combo pack 1 pkg PO DAILY magnesium 200 mg tablet 400 mg PO DAILY Discharge Instructions Instructions: Acute Nausea and Vomiting (ED), Acute Diarrhea (ED) Additional Instructions: you still have a stool studies pending if they are positive you will be called if the zofran is not effective for your nausea you can try the compazine if not better within a week follow up with your primary care provider if you feel more ill, have sever abdominal pain or persistent vomiting return to the emergency department Medical Decision Making 31 yo female with no chronic medical problems comes in with chief complaint of nausea for 3 days. She states it started Friday, doesn't believe she ate anything out of the ordinary. She went to urgent care yesterday and started zofran which helped but today doesn't seem to be as effective so came here. She also has had diarrhea. No severe abdominal pain, she states her abdomen is gurgly. She denies fevers or chills, no chest pain or dyspnea. She arrives stable speaking in full sentences. She has a soft nontender abdomen even with deep palpation. Her symptoms of nausea and diarrhea seem typical for a viral gastroenteritis vs food illness, will treat with fluids and compazine and also obtain cbc, cmp and observe. no significant findings on labs, did provide a stool sample that was sent for fecal bacterial pathogens. She is feeling better still no abdominal pain or tenderness. Suspect infectious gastroenteritis, will have her continue as needed antiemetics and have her f/u with pcp, return precautions given Differential Diagnosis Differential Diagnosis: gastroenteritis, food illness Lab Data Lab results reviewed: Yes I reviewed the patient's lab results. Sign Out No HPI General Mode of arrival: ambulatory . Date/Time Provider Initiated Documentation: 04/14/22 16:56 . Limitations to Documentation: no limitations . Information obtained by: patient . History of Present Illness 31 year old F presents to the emergency department with the chief complaint of nausea, shari cribed as moderate, Patient started experiencing this day(s) (3) and it has been constant. No relieving factors improve symptom(s), No exacerbating factors reported . Patient notes denies chest pain and fever/chills. Patient did receive the following treatments prior to arrival, other (zofran) Related Data Home Medications Medication Instructions Recorded Confirmed vits 75-iron 28 mg-folic 1 pkg PO DAILY 06/14/21 04/14/22 acid 800 mcg-omega-3 oral combo pack (One A Day Women's DHA) magnesium 200 mg tablet 400 mg PO DAILY 07/30/21 04/14/22 ferrous sulfate 325 mg (65 mg 325 mg PO Q OTHER DAY 10/09/21 04/14/22 iron) tablet (FeroSul) cholecalciferol (vitamin D3) 25 2,000 unit PO DAILY 03/13/22 04/14/22 mcg (1,000 unit) capsule docusate sodium 100 mg capsule 100 mg PO BID PRN 03/13/22 04/14/22 (Colace) sertraline 25 mg tablet 50 mg PO DAILY #90 tabs 04/03/22 04/14/22 ondansetron HCl 4 mg tablet 4 mg PO Q6H PRN nausea and 04/13/22 04/14/22 vomiting #4 tabs prochlorperazine maleate 10 mg 10 mg PO TID PRN nausea and 04/14/22 tablet (Compazine) vomiting #30 tabs Previous Rx's Medication Instructions Recorded sertraline 25 mg tablet 50 mg PO DAILY #90 tabs 04/03/22 ondansetron HCl 4 mg tablet 4 mg PO Q6H PRN nausea and 04/13/22 vomiting #4 tabs prochlorperazine maleate 10 mg 10 mg PO TID PRN nausea and 04/14/22 tablet (Compazine) vomiting #30 tabs Allergies Allergy/AdvReac Type Severity Reaction Status Date / Time No Known Drug Allergies Allergy Verified 04/14/22 17:07 General Stated Complaint: Nausea/Vomit/Diar MYLENE: 3 Review of Systems All systems reviewed & are unremarkable except as noted in HPI and below Constitutional Constitutional: Denies chills, Denies fever(s) and Denies weakness Cardiovascular Cardiovascular: Denies chest pain and Denies dyspnea Respiratory Respiratory: Denies cough and Denies dyspnea Gastrointestinal Gastrointestinal: Denies abdominal pain Genitourinary Genitourinary: Denies dysuria Musculoskeletal Musculoskeletal: Denies joint swelling Integumentary/Breasts Skin/Breast: Denies rash Neurologic Neurologic: Denies weakness [facility] All Active Problems (Updated 04/14/22 @ 18:50 by Sai Johnson MD) Nausea (Acute) Diarrhea (Acute) Acute adjustment disorder with mixed anxiety and depressed mood (Acute) Inadequate milk production (Acute) anemia (Acute) Lactating mother (Acute) care following vaginal delivery (Acute) Body mass index [BMI] 38.0-38.9, adult (Acute) Medical History History of anxiety Surgical History History of wisdom tooth extraction (2013) Family History Maternal Grandmother Cancer Uterine Lymphoma Hypertension Maternal Grandfather Cancer lung Hypertension Mother Depression Father Hypertension Social History Smoking/Tobacco Use Status: Never Smoking risk assessment performed?: Yes Alcohol Intake: current Alcohol Intake frequency: a few times a week Drug use: Never Substance use type: does not use Adopted: No Caregiver/Support person: No Foster care: No Household members: spouse and children Housing: house Number of Children: 1 Communication Needs: None Education Level: college Details: doctorate (OD) Do you need help understanding health information?: Never current occupation: Certified Physician'S Assistant Pets and animals: Yes Pets and animals: dog(s) Sexually active: Yes Do you think of yourself as: straight/heterosexual Current gender identity: female What is your relationship status?: How often do you talk on the phone with friends or family?: once per week How often do you get together with friends or relatives?: never Do you belong to any clubs or organized social groups?: yes Panel score (0-1 are the most socially isolated patients): 2 What type of physical activity do you participate in: walking Duration: < 15 minutes/day Frequency: 1-2 times per week Darcy/Mu-Ism: Hoahaoism Special darcy needs: No Agree to transfusion: Yes Seatbelt use: always Helmet use: Yes Helmet use: always Drive intox or ride w/intox warehouse delivery driver: No Do you feel safe at home: Yes Do you feel safe in your relationship?: Yes Female Reproductive History Menstrual Age of Menarche: 17 Duration of menses: 3-5 days History History 1 Para 1 Hx # Term Pregnancies 1 Multiple births 0 Hx # Pregnancies 0 Ectopic pregnancies 0 AB induced 0 Hx Number of Living Children 1 AB spontaneous 0 Past Pregnancies Del. Date GA/Weeks # Preg Succ Route Wgt Sex Labor Lgth Anesth esia Location [facility] 12/06/21 41 No Yes vaginal 3146.797 g Female [facility] AMADOU Rincon Delivery Date: 12/06/21 Last Updated by: GUILLE Haq; 2nd degree perineal laceration, repaired; Exam Const General: no acute distress Orientation: alert HENMT Head: normal to inspection Ears: external ears normal General nose exam: external nose normal Mouth: moist mucous membranes Eyes General: appearance normal, both eyes and all related structures Neck Neck: normal visual inspection Resp Effort & Inspection: normal respiratory effort and able to speak in complete sentences Cardio Rate: regular rate GI Palpation: soft and nontender Skin General skin exam: no rashes or lesions noted Neuro General: patient alert and patient oriented x3 Extrem General: normal to inspection Psych Mental Status: mental status grossly normal Course Vital Signs Vital signs: Vital Signs Temperature 37.1 C 04/14/22 17:05 Pulse 108 H 04/14/22 17:05 Respiratory Rate 18 04/14/22 17:05 Blood Pressure 109/80 04/14/22 17:05 Pulse Oximetry 98 04/14/22 17:05 Temperature 37.1 C 04/14/22 17:05 Temperature Source Temporal Artery Scan 04/14/22 17:05 Pulse 108 H 04/14/22 17:05 Respiratory Rate 18 04/14/22 17:05 Respiratory Effort Non-Labored 04/14/22 17:08 Blood Pressure 109/80 04/14/22 17:05 Blood Pressure Position Sitting 04/14/22 17:05 Pulse Oximetry 98 04/14/22 17:05 Oxygen Delivery Method Room Air 04/14/22 17:05 Oxygen Flow Rate 0 04/14/22 17:05 PAWSS Have you Been Recently Intoxicated or Drunk Within the Last 30 days?: No Have you Ever Experienced Previous Episodes of Alcohol Withdrawal?: No Have you ever Experienced Withdrawal Seizures?: No Have you ever Experienced Delirium Tremens(DT)s?: No Have you ever undergone Alcohol Rehabilitation Treatment (i.e, inpt ot outpatient treatment programs)?: No Have you ever Experienced Blackouts?: No Have you ever Combined Alcohol with other Downers within the last 90 days?: No Have you ever Combined Alcohol with any other Substance of Abuse during the last 90 days?: No Positive Blood Alcohol level on Presentation? [PCS.BAL]: No Evidence of Increased Autonomic Activity (i.e. HR>120, tremor, sweating, agitation, nausea)?: No Result: 0
[2022-04-14 17:55] LABS: Abs Immature Grans 0.01 10^3/uL (0.0-0.06); Absolute Basophil Count 0.01 10^3/uL (0.0-0.2); Absolute Eosinophil Count 0.08 10^3/uL (0.0-0.7); Absolute Lymphocyte Count 0.71 10^3/uL (1.2-3.4); Absolute Monocyte Count 0.54 10^3/uL (0.1-0.8); Absolute Neutrophil Count 3.39 10^3/uL (1.2-6.7); Basophils % 0.2; Eosinophils % 1.7; HCT 42.3 % (36.0-46.0); HGB 13.5 g/dL (11.2-15.7); Immature Grans % 0.2; MCH 27.5 pg (27.0-33.0); MCHC 31.9 % (32.0-36.0); MCV 86 fL (80-95); MPV 9.5 fL (8.0-11.0); Monocytes % 11.4; Neutrophils % 71.5; Platelet Count 239 10^3/uL (130-400); RBC 4.91 10^6/uL (3.93-5.22); RDW 13.2 % (11.7-14.6); RDW-SD 41.5 fL; WBC 4.74 10^3/uL (4.4-10.8)
[2022-04-14 17:57] LABS: Bilirubin Negative (Negative); Blood Trace-intact (Negative); Clarity Sl Cloudy (Clear); Glucose Negative (Negative); Ketones Negative (Negative); Leukocyte Esterase Negative (Negative); Nitrite Negative (Negative); Specific Gravity >= 1.030 (1.005-1.025); Urobilinogen 0.2 EU/dL (Up TO 0.2)
[2022-04-14 18:09] LABS: ALT 64 U/L (14-59); AST 34 U/L (15-37); Albumin 3.9 g/dL (3.4-5.0); Alkaline Phosphatase 77 U/L (46-116); Anion Gap 7.9 mmol/L (3-11); BUN 12 mg/dL (7-18); Bilirubin, Total 0.3 mg/dL (0.2-1.0); CO2 27.1 mmol/L (21.0-32.0); CREATININE 1.1 mg/dL (0.55-1.02); Calcium 9.1 mg/dL (8.5-10.1); Chloride 101 mmol/L (98-107); Estimated GFR 69.76 (mL/min/1.73m2); Glucose 103 mg/dL (74-106); Lipase 57 U/L (73-393); Potassium 3.4 mmol/L (3.5-5.1); Sodium 136 mmol/L (136-145); Total Protein 8.1 g/dL (6.4-8.2)
[2022-04-14 18:13] LABS: Bacteria Many HPF (Negative); C & S Indicated? No/Sq. Contamination; Casts Negative LPF (Negative); Crystals Negative HPF (Negative); Epithelial Cells Many HPF (Negative); Mucus Trace (Negative)
[2022-04-14] MEDS: Normal Saline 1,000 ML 1000 ML IV (18:17)
[2022-04-14] MEDS: Prochlorperazine 10 MG/2 ML VIAL IVP (18:18)
[2022-04-14] MEDS: Normal Saline 50 ML (18:18)
[2022-04-14 18:36] LABS: COVID-19 PCR Negative (Negative); Influenza A PCR Negative (Negative); Influenza B PCR Negative (Negative); RSV PCR Negative (Negative)
[2022-04-14 18:43] LABS: Source Nasopharynx
[2022-04-16 11:22] LABS: Campylobacter PCR Negative (Negative); Salmonella PCR Negative (Negative); Shiga Toxin PCR Negative (Negative); Shigella/Enteroinvasive Ecoli Negative (Negative)
== END 2022-04-14 19:04 | disposition home or self-care (01) ==
PROVIDERS: Emergency Provider Emergency Medicine; PCP Nurse Practitioner Adult Health
DX: R19.7 Diarrhea, unspecified (principal); R11.2 Nausea with vomiting, unspecified; Z20.822 Contact with and (suspected) exposure to COVID-19
CPT/HCPCS: 36415; 80053; 81025; 83690; 87505; 87637; 96361; 96374; 99284; 81003; 81015; 85025; J0780

== ENCOUNTER 2022-07-26 02:50 | Outpatient (CLI) | payer BC, SELFPAY ==
[2022-07-26 08:31] LABS: Anion Gap 5.9 mmol/L (3-11); BUN 12 mg/dL (7-18); CO2 29.1 mmol/L (21.0-32.0); Calcium 9.2 mg/dL (8.5-10.1); Calculated LDL 128 mg/dL (<100); Chloride 102 mmol/L (98-107); Cholesterol 200 mg/dL (<200); Estimated GFR 78.21 (mL/min/1.73m2); Glucose 100 mg/dL (74-106); HDL Cholesterol 38 mg/dL (40-60); Sodium 137 mmol/L (136-145); Triglyceride 174 mg/dL (<150)
== END 2022-07-26 02:51 | disposition home or self-care (01) ==
PROVIDERS: PCP Nurse Practitioner Adult Health; Visit Provider Nurse Practitioner Adult Health
DX: Z13.220 Encounter for screening for lipoid disorders (principal); Z13.1 Encounter for screening for diabetes mellitus
CPT/HCPCS: 36415; 80048; 80061

== ENCOUNTER 2023-01-01 01:45 | Outpatient (CLI) | payer BC, SELFPAY ==
[2023-01-01 08:39] LABS: Anion Gap 8.1 mmol/L (3-11); BUN 10 mg/dL (7-18); CO2 26.9 mmol/L (21.0-32.0); CREATININE 0.8 mg/dL (0.55-1.02); Calcium 8.8 mg/dL (8.5-10.1); Chloride 101 mmol/L (98-107); Estimated GFR 101.59 (mL/min/1.73m2); Glucose 86 mg/dL (74-106); Sodium 136 mmol/L (136-145)
== END 2023-01-01 01:46 | disposition home or self-care (01) ==
PROVIDERS: PCP Nurse Practitioner Adult Health; Visit Provider Nurse Practitioner Adult Health
DX: E66.8 Other obesity (principal); Z68.35 Body mass index [BMI] 35.0-35.9, adult; Z79.899 Other long term (current) drug therapy; Z51.81 Encounter for therapeutic drug level monitoring
CPT/HCPCS: 36415; 80048

== ENCOUNTER 2023-11-07 02:39 | Outpatient (CLI) | payer BC, SELFPAY ==
[2023-11-07 08:25] LABS: HCT 38.1 % (36.0-46.0); HGB 12.7 g/dL (11.2-15.7); MCH 29.2 pg (27.0-33.0); MCHC 33.3 % (32.0-36.0); MCV 88 fL (80-95); MPV 9.4 fL (8.0-11.0); Platelet Count 217 10^3/uL (130-400); RBC 4.35 10^6/uL (3.93-5.22); RDW-SD 38.9 fL
[2023-11-07 09:46] LABS: ALT 27 U/L (14-59); AST 19 U/L (15-37); Albumin 3.7 g/dL (3.4-5.0); Alkaline Phosphatase 51 U/L (46-116); BUN 12 mg/dL (7-18); Bilirubin, Total 0.25 mg/dL (0.2-1.0); CREATININE 0.8 mg/dL (0.55-1.02); Calcium 8.9 mg/dL (8.5-10.1); Calculated LDL 122 mg/dL (<100); Chloride 106 mmol/L (98-107); Cholesterol 187 mg/dL (<200); Estimated GFR 100.96 (mL/min/1.73m2); Ferritin 66 ng/mL (8-252); Glucose 88 mg/dL (74-106); HDL Cholesterol 44 mg/dL (40-60); Potassium 4.2 mmol/L (3.5-5.1); Sodium 141 mmol/L (136-145); TSH (W/Ref FT4) 1.73 uIU/mL (0.36-3.74); Total Protein 7.6 g/dL (6.4-8.2); Triglyceride 109 mg/dL (<150); Vitamin B12 317 pg/mL (193-986)
[2023-11-07 09:56] LABS: Folate > 20.0 ng/mL (8.6-20.0)
== END 2023-11-07 02:40 | disposition home or self-care (01) ==
PROVIDERS: PCP Nurse Practitioner Adult Health; Visit Provider Nurse Practitioner Adult Health
DX: R53.83 Other fatigue (principal); Z68.35 Body mass index [BMI] 35.0-35.9, adult
CPT/HCPCS: 36415; 80053; 80061; 85027; 82607; 82728; 82746; 84443

== ENCOUNTER 2024-03-10 03:38 | Outpatient (CLI) | payer BC, SELFPAY ==
[2024-03-10 12:17] LABS: Panorama Kit Sent via Fed Ex
[2024-03-10 12:26] LABS: Abs Immature Grans 0.03 10^3/uL (0.0-0.06); Absolute Basophil Count 0.02 10^3/uL (0.0-0.2); Absolute Eosinophil Count 0.17 10^3/uL (0.0-0.7); Absolute Lymphocyte Count 1.31 10^3/uL (1.2-3.4); Absolute Monocyte Count 0.75 10^3/uL (0.1-0.8); Basophils % 0.2 %; Eosinophils % 2.1 %; HCT 36.7 % (36.0-46.0); HGB 12.4 g/dL (11.2-15.7); Immature Grans % 0.4 %; Lymphocytes % 16.2 %; MCH 28.9 pg (27.0-33.0); MCHC 33.8 % (32.0-36.0); MCV 86 fL (80-95); MPV 9.5 fL (8.0-11.0); Monocytes % 9.3 %; Neutrophils % 71.8 %; Platelet Count 216 10^3/uL (130-400); RBC 4.29 10^6/uL (3.93-5.22); RDW 12.3 % (11.7-14.6); RDW-SD 38.7 fL; WBC 8.08 10^3/uL (4.4-10.8)
[2024-03-10 12:45] LABS: Glucose,1 Hr (Glucola) 80 mg/dL (80-140)
[2024-03-10 12:57] LABS: TSH (W/Ref FT4) 2.03 uIU/mL (0.36-3.74)
[2024-03-11 08:58] LABS: Hepatitis B Surface Ag Negative (Negative)
[2024-03-11 09:21] LABS: HIV-1/2 Ag & Ab Screen Negative (Negative)
[2024-03-11 09:48] LABS: Hepatitis C Ab w Rflx HCV PCR Negative (Negative)
[2024-03-11 11:36] LABS: Varicella IgG Antibody Positive (See Note)
[2024-03-11 14:16] LABS: Rubella IgG Ab (UVM) Equivocal (See Note)
[2024-03-11 23:30] LABS: Syphilis IgG w/Reflex Nonreactive (Nonreactive)
== END 2024-03-10 03:39 | disposition home or self-care (01) ==
LOC: LBO 03:38
PROVIDERS: PCP Nurse Practitioner Adult Health; Visit Provider Advanced Practice Midwife
DX: Z34.91 Encounter for supervision of normal pregnancy, unspecified, first trimester (principal)
CPT/HCPCS: 36415; 82950; 86787; 86803; 86850; 86900; 86901; 87340; 87389; 84443; 85025; 86762; 86780

== ENCOUNTER 2024-03-10 11:15 | Outpatient (REF) | payer BC, SELFPAY ==
[2024-03-16 16:00] LABS: Buprenorphine Negative ng/mL (Cutoff: 5.0); Norbuprenorphine Negative ng/mL (Cutoff: 2.5)
== END 2024-03-10 11:16 | disposition home or self-care (01) ==
LOC: LBN 11:15
PROVIDERS: PCP Nurse Practitioner Adult Health; Visit Provider Advanced Practice Midwife
DX: Z34.91 Encounter for supervision of normal pregnancy, unspecified, first trimester (principal)
CPT/HCPCS: 80348; 87086

== ENCOUNTER 2024-07-07 03:30 | Outpatient (CLI) | payer BC, SELFPAY ==
[2024-07-07 09:46] LABS: HCT 30.7 % (36.0-46.0); HGB 10.1 g/dL (11.2-15.7); MCH 28.8 pg (27.0-33.0); MCHC 32.9 % (32.0-36.0); MCV 88 fL (80-95); MPV 9.7 fL (8.0-11.0); Platelet Count 174 10^3/uL (130-400); RBC 3.51 10^6/uL (3.93-5.22); RDW 13.3 % (11.7-14.6); WBC 8.59 10^3/uL (4.4-10.8)
[2024-07-07 10:27] LABS: Glucose,1 Hr (Glucola) 110 mg/dL (80-140)
== END 2024-07-07 03:31 | disposition home or self-care (01) ==
LOC: LBO 03:30
PROVIDERS: PCP Nurse Practitioner Adult Health; Visit Provider Advanced Practice Midwife
DX: Z34.92 Encounter for supervision of normal pregnancy, unspecified, second trimester (principal); Z3A.01 Less than 8 weeks gestation of pregnancy
CPT/HCPCS: 36415; 82950; 85027

== ENCOUNTER 2024-08-26 01:19 | Outpatient (CLI) | payer BC, SELFPAY ==
--- NOTE | 2024-08-26 07:15 | DI.US_ITS ---
Exam(s) US OB [place] WEIGHT EXAM: US OB [place] WEIGHT CLINICAL HISTORY: size greater than dates,fundal height,Z34.90. TECHNIQUE: Transabdominal obstetrical ultrasound performed. COMPARISON: US US OB F/U FACIAL/LVOT/RVOT from 05/19/2024 FINDINGS: Number of fetuses: 1 position: BREECH Placental location: There is a grade 2 anterior placenta. No evidence of previa. BIOMETRIC DATA: BPD: 8.94cm, 36weeks 1day HC: 32.62cm, 37weeks AC: 32.66cm, 36weeks 4days FL: 7cm, 35weeks 6days EFW: 2,929.46g, 6lb 7.69oz, 84.4% Composite Age: 36weeks 3days CHEL: 09/20/2024 Heart Rate: 170bpm Amniotic fluid index: 16.09cm. The largest pocket is 4.2 cm. IMPRESSION: 1. Single live intrauterine gestation as above. 2. Estimated weight is 2929gms. This is the 84th percentile. 3. Amniotic fluid index is 16.1 cm. The largest pocket is 4.2 cm. DATA REPOSITORY:
== END 2024-09-06 16:21 ==
LOC: DI 13:06 → OBS 09-06 15:43
PROVIDERS: PCP Nurse Practitioner Adult Health; Visit Provider Advanced Practice Midwife
DX: Z34.93 Encounter for supervision of normal pregnancy, unspecified, third trimester; Z3A.33 33 weeks gestation of pregnancy
CPT/HCPCS: 76816

== ENCOUNTER 2024-09-01 10:03 | Outpatient (REF) | payer BC, SELFPAY | END 2024-09-01 10:04 | disposition home or self-care (01) | LOC: LBN 10:03 | PROVIDERS: PCP Nurse Practitioner Adult Health; Visit Provider Advanced Practice Midwife | DX: Z36.85 Encounter for antenatal screening for Streptococcus B (principal) | CPT/HCPCS: 87081 ==

== ENCOUNTER 2024-09-06 16:25 | Outpatient (CLI) | payer BC, SELFPAY ==
--- NOTE | 2024-09-06 18:46 | W.OBNST ---
Date of service: 09/06/24 Time of Service: 18:46 NST Evaluation Reason for NST Reasons for Nonstress Test: OTHER, SEE COMMENT Reason for NST Other: well being Gestational Age Gestational Age in Weeks and Days: 36 Weeks and 4Days Test and Monitor Explained Test/Monitor Explained: Test Explained, Monitor Explained and Patient Verbalized Understanding NST Information Date on Monitor: 09/06/24 Time on Monitor: 15:44 Date off Monitor: 09/06/24 Time off Monitor: 16:09 Total Time on Monitor: 25 NST Interventions: PO Hydration NST Evaluation Patient States Movement: Present FHR Baseline: 130 Variability: Moderate 6-25 bpm Accelerations: 15x15 Decelerations: None NST Results: Reactive Note Ultrasound Done: Presentation (breech) Presentation Results: breech, LSA Coding for Presentation w/NST: Completed Exam. NST Note Note: Reactive NST, Breech confirmed. MD Love to consult on ECV. NST Reviewed and Verified by: Gloria Juarez
--- NOTE | 2024-09-06 21:37 | PGE_ITS ---
Date of Service Date of service: 09/06/24 Time of Service: 18:00 Assessment and Plan Assessment and plan (1) Breech presentation: Status: Acute Assessment and plan: 34-year-old -0-0-1 ( x 1) at 36 and 4 as dated by LMP equal to 8-week ultrasound ? Rh+ / rubella equivocal / VZV immune / GBS negative (as of 420) ? complicated by obesity, normocytic anemia, rubella equivocal status ? Denies any complications in her prior delivery including [place], PPH, shoulder dystocia 08/26/2024 TVUS (35 weeks): anterior placenta, EFW 2929 g (84th percentile), DAKOTA of 16.09 cm (MVP 4.2 cm), breech presentation - - - - - - - - - - - - - 09/06/2024 (Ivan): Limited bedside ultrasound confirms erin breech presentation with spine to the maternal left. Fluid is subjectively good with an MVP of at least 4 cm. We discussed external cephalic version in detail.? We discussed that an external cephalic version is an attempt to rotate a baby from incorrect presentation into cephalic presentation.? We discussed that this can be notably uncomfortable, causing bruising, and comes with multiple risks.? We discussed that risks include, but are not limited to, pain / discomfort, rupture of membranes, bleeding, intolerance, placental abruption, cord avulsion, cord accidents, failure of the procedure, need for emergency , uterine rupture, complications from anesthesia, and unforseen issues.? I discussed that, while I usually like to utilize an epidural for pain control, In order to expedite boarding care for this Friday, we could trial a version on the L&D floor without epidural (using IV pain medication and/or nitrous). If this attempt is unsuccessful for what ever reason (maternal discomfort or failure for successful version) we could then reschedule for the following Friday with the anticipated use of an epidural. She is agreeable to this.? We discussed the potential use of Terbutaline to relax the uterus.? All questions were answered to the patient's satisfaction and she desires to proceed with the procedure.? She was consented on the potential need for blood products.? She was made aware that the transfusion of blood products is considered a tissue transfusion and we therefore watch for tissue reactions.? We discussed the extremely remote but possible transmission of blood borne pathogens. The patient again verbalized understanding; she was consented for external cephalic version with possible and/or possible blood transfusion in the event of need. - - - - - - - - - - - - - Subjective Subjective Interval history since last seen: I was called to assess the patient due to concerns for breech presentation. Patient is a 34-year-old -0-0-1 ( x 1) who presents today to triage at 36 and 4 as dated by [facility] equal to 8-week ultrasound. Patient presents for concerns for possible breech presentation based on with the mother was a flip sensation overnight. Her is complicated by obesity as well as mild anemia identified at 28 weeks. She reports feeling well today. She reports good movement and she denies any concerns for contractions, bleeding, or leakage. She was assessed by the group fitness department head on-call and was appreciated to be in breech presentation. I was consulted to discuss potential interventions with the patient. Of note, her last ultrasound was performed on 26 August (about a week and a half ago at 35 weeks); at that time she was appreciated to have an anterior placenta, an estimated weight of 2929 g (84th percentile), and DAKOTA of 16.09 cm (MVP 4.2 cm), and breech presentation. Exam Const General: cooperative and healthy appearing Nutritional Appearance: well nourished Orientation: alert and awake [facility] Head: normocephalic Resp Effort & Inspection: normal respiratory effort GI Inspection: other (gravid, non-tender. ) Skin General skin exam: no rashes or lesions noted Neuro General: patient alert and patient awake Extrem General: normal to inspection Psych Appearance: well kempt Mental Status: mental status grossly normal Affect: normal affect Time Spent with Patient Time Spent with Patient: 35-49 minutes Time was spent: preparing to see the patient(eg.review tests), obtaining and/or reviewing separately otained hiistory, ordering medications,tests, procedures, referring, communicating with other health home health care case manager, indepentently interpreting results, counseling the patient and care coordination
== END 2024-09-06 17:47 ==
LOC: BCD 16:25 → OBS 16:26
PROVIDERS: PCP Nurse Practitioner Adult Health; Visit Provider Advanced Practice Midwife
DX: O32.1XX0 Maternal care for breech presentation, not applicable or unspecified (principal); Z3A.36 36 weeks gestation of pregnancy
CPT/HCPCS: 59025

== ENCOUNTER 2024-09-08 07:40 | Observation (INO) | payer BC, SELFPAY ==
[2024-09-08] VITALS (26 sets, daily range): BP systolic 124–134; BP diastolic 81–85; PULSE 79–95; RESP 18; TEMP 36.7; O2SAT 96–98; BMI 40.3
[2024-09-08] MEDS: Lactated Ringers 1,000 ML 150 ML IV (07:45)
[2024-09-08 07:52] LABS: HCT 32.9 % (36.0-46.0)
--- NOTE | 2024-09-08 08:08 | HPE_ITS ---
Date of service: 09/08/24 Time of Service: 08:08 Assessment and Plan Assessment and plan (1) Breech presentation: Status: Acute Assessment and plan: 34-year-old -0-0-1 ( x 1) at 36 and 6 as dated by LMP equal to 8-week ultrasound ? Rh+ / rubella equivocal / VZV immune / GBS negative (as of 420) ? complicated by obesity, normocytic anemia, rubella equivocal status ? Denies any complications in her prior delivery including [place], PPH, shoulder dystocia 08/26/2024 TVUS (35 weeks): anterior placenta, EFW 2929 g (84th percentile), DAKOTA of 16.09 cm (MVP 4.2 cm), breech presentation - - - - - - - - - - - - - 09/06/2024 (Ivan): Limited bedside ultrasound confirms erin breech presentation with spine to the maternal left. Fluid is subjectively good with an MVP of at least 4 cm. We discussed external cephalic version in detail.? We discussed that an external cephalic version is an attempt to rotate a baby from incorrect presentation into cephalic presentation.? We discussed that this can be notably uncomfortable, causing bruising, and comes with multiple risks.? We discussed that risks include, but are not limited to, pain / discomfort, rupture of membranes, bleeding, intolerance, placental abruption, cord avulsion, cord accidents, failure of the procedure, need for emergency , uterine rupture, complications from anesthesia, and unforseen issues.? I discussed that, while I usually like to utilize an epidural for pain control, In order to expedite boarding care for this Friday, we could trial a version on the L&D floor without epidural (using IV pain medication and/or nitrous). If this attempt is unsuccessful for what ever reason (maternal discomfort or failure for successful version) we could then reschedule for the following Friday with the anticipated use of an epidural. She is agreeable to this.? We discussed the potential use of Terbutaline to relax the uterus.? All questions were answered to the patient's satisfaction and she desires to proceed with the procedure.? She was consented on the potential need for blood products.? She was made aware that the transfusion of blood products is considered a tissue transfusion and we therefore watch for tissue reactions.? We discussed the extremely remote but possible transmission of blood borne pathogens. The patient again verbalized understanding; she was consented for external cephalic version with possible and/or possible blood transfusion in the event of need. 09/08/2024 (Ivan): Patient reports feeling well. Breech presentation again affirmed on bedside US. Reviewed the above with the patient, again, and she consents. No interval changes noted. Will proceed as planned. - - - - - - - - - - - - - OB-HPI Labor/Delivery History of Present Illness Reason for Visit: Pre-[place] Chief Complaint: Other (Breech). CHEL Calculator Estimated Delivery Date Method Current WG Current Estimate 09/30/24 LMP (Certain) 36w 6d Other Estimates 10/01/24 Ultrasound #1 36w 5d History of Present Expected Delivery Route/Plan - CNM FOB/ - Norman Fenton (2nd child together) BG Plans epidural Rubella immunity equivocal, offer MMR GBS negative Specific Issues/Plan 1. BMI 34, early glucola=80, 1hr 110 2. cfDNA low risk female, known negative for CF carrier (from 23 & me), AFP - declined. 3. Depression/anxiety, take sertraline 25 mg qd, increased to 50mg 09/01 4. 5P screen negative, PHQ9 score is 3 5. Due for pap 6. Mild anemia at 28 wks, start oral iron tab, hgb 10.9 on 07/21/24 adding more insoluble fiber Review of Systems All systems reviewed & are unremarkable except as noted in HPI and below PFSH All Active Problems Breech presentation (Acute) Fundal height high for dates (Acute) Anemia affecting (Acute) Rubella non-immune status, antepartum (Acute) (Acute) Obesity (BMI 30.0-34.9) (Acute ~07/2022) Started semaglutide 07/2022; stopped December 2023 BMI 35.0-35.9,adult (Acute) Acute adjustment disorder with mixed anxiety and depressed mood (Acute) Medical History Inadequate milk production anemia Lactating mother care following vaginal delivery Body mass index [BMI] 38.0-38.9, adult History of anxiety Surgical History History of wisdom tooth extraction (2012) Family History Maternal Grandmother Cancer Uterine Lymphoma Hypertension Breast cancer Maternal Grandfather Cancer lung Hypertension Mother Depression Father Hypertension Social History Smoking/Tobacco Use Status: Never Smoking risk assessment performed?: Yes Alcohol Intake: current Alcohol Intake frequency: a few times a week Drug use: Never Substance use type: does not use Adopted: No Caregiver/Support person: No Foster care: No Household members: spouse and children Housing: house Number of Children: 1 Communication Needs: None Education Level: college Details: doctorate (OD) Do you need help understanding health information?: Never current occupation: Supplemental Nurse Pets and animals: Yes (3 Dogs, 1 Cat) Pets and animals: cat(s) and dog(s) Sexually active: Yes Do you think of yourself as: straight/heterosexual Current gender identity: female What is your relationship status?: How often do you talk on the phone with friends or family?: once per week How often do you get together with friends or relatives?: never How often do you attend spiritism or voodoo services?: decline to answer Do you belong to any clubs or organized social groups?: yes Panel score (0-1 are the most socially isolated patients): 2 What type of physical activity do you participate in: none Duration: decline to answer Frequency: decline to answer Darcy/Methodist: Restorationism Special darcy needs: No Agree to transfusion: Yes Seatbelt use: always Helmet use: Yes Helmet use: always Drive intox or ride w/intox national dedicated truck driver: No Do you feel safe at home: Yes Do you feel safe in your relationship?: Yes Female Reproductive History Menstrual Age of Menarche: 17 Duration of menses: 3-5 days History History 2 Para 1 Hx # Term Pregnancies 1 Multiple births 0 Hx # Pregnancies 0 Ectopic pregnancies 0 AB induced 0 Hx Number of Living Children 1 AB spontaneous 0 Past Pregnancies Del. Date GA/Weeks # Preg Succ Route Wgt Sex Labor Lgth Anesth esia Location Prov Complic 12/06/21 41 No Yes vaginal 6 lb 15 oz Female regional [facility] Delivery Date: 12/06/21 Last Updated by: Seema Alexandre IOL postdates, epidural came apart and had to be reinserted, nml Sara Vega Ronn Allergies and Home Medications Allergies Allergy/AdvReac Type Severity Reaction Status Date / Time No Known Allergies Allergy Verified 09/01/24 09:06 Home Medications ?Medication ?Instructions ?Recorded ?Confirmed ?Type vits 75-iron 28 mg-folic 1 pkg PO DAILY 06/14/21 09/01/24 History acid 800 mcg-omega-3 oral combo pack (One A Day Women's DHA) magnesium 200 mg tablet 400 mg PO DAILY 07/30/21 09/01/24 History cholecalciferol (vitamin D3) 25 2,000 unit PO DAILY 03/13/22 09/01/24 History mcg (1,000 unit) capsule ascorbate calcium (vitamin C) 500 500 mg PO DAILY 07/17/22 09/01/24 History mg tablet docusate sodium 100 mg capsule 100 mg PO DAILY 06/09/24 09/01/24 History (Colace) aspirin 81 mg chewable tablet 81 mg PO DAILY 07/07/24 09/01/24 History [id number] tablet 1 tab PO DAILY 07/07/24 09/01/24 History iron PO 07/21/24 09/01/24 History sertraline 25 mg tablet 25 mg PO DAILY #90 tabs 07/22/24 09/01/24 Rx sertraline 50 mg tablet 50 mg PO DAILY 90 days #90 tabs 09/01/24 09/01/24 Rx Exam Physical Exam Vital signs: Temp Pulse Resp BP Pulse Ox 98.0 F 81 18 134/85 98 09/08/24 07:42 09/08/24 08:07 09/08/24 07:42 09/08/24 07:42 09/08/24 08:04 Narrative: General: Well nourished female in no immediate distress HEENT: Normocephalic Pulm: No respiratory distress Abd: Gravid, non-tender Ext: Trace bilateral edema Psych: Appropriate LBSUS: Erin breech; head to the left with spine posterior FHT: Cat 1 Espino: Irritability noted Detailed Labor and Delivery Exam Brown Score: Cervical Points Exam 0 1 2 3 Dilation Closed 1-2cm 3-4 cm 5-6cm Effacement 0-30% 40-50% 60-70% 80% Consistency Firm Medium Soft Station -3 -2 -1,0 +1,+2 Position Posterior Mid Anterior Results Results Lab Results: Rubella Eq; Rh+, VZV I, GBS neg, Gc/C neg, Hep C neg, Hep B neg, 1hr WNL Risk Assessment Risk for Shoulder Dystocia Historical/Initial OB: POSITIVE FOR: Pre- BMI>30; NEGATIVE FOR: Pelvic Abnormality, Previous Shoulder Dystocia or Previous Macrosomia Risk for Pre-Eclampsia Date Initiated/Initials: not indicated. JK Yes, if one or more: NEGATIVE FOR: Hx Pre-E/Gest HTN, Chronic HTN, Multiple Gestation, Pre-gestational DM, Renal Disease, Systemic Lupus or APA Syndrome Yes, if 2 or more: POSITIVE FOR: BMI>30; NEGATIVE FOR: Nulliparity, Age>= 35 yrs, >10yr btwn pregnancies, ethinicty, Mother/Sister w/ Pre-E or Previous IUGR Risk for Post- Hemorrhage Initial: NEGATIVE FOR: Multiple Gestation, Previous PPH, Known Clotting Deficiency, Grand Multiparity or Anticoagulation Risks Reviewed Risks Reviewed Upon Admission: Yes
--- NOTE | 2024-09-08 08:22 | ANES.PREOP_ITS ---
General Info Date of Service Date Performed: 09/08/24 Height: 5 ft 6 in Weight: 113.398 kg Body Mass Index (BMI): 40.3 Meds Allergies and Home Medications Allergies Allergy/AdvReac Type Severity Reaction Status Date / Time No Known Allergies Allergy Verified 09/01/24 09:06 Home Medication ?Medication ?Instructions ?Recorded vits 75-iron 28 mg-folic 1 pkg PO DAILY 06/14/21 acid 800 mcg-omega-3 oral combo pack (One A Day Women's DHA) magnesium 200 mg tablet 400 mg PO DAILY 07/30/21 cholecalciferol (vitamin D3) 25 2,000 unit PO DAILY 03/13/22 mcg (1,000 unit) capsule ascorbate calcium (vitamin C) 500 500 mg PO DAILY 07/17/22 mg tablet docusate sodium 100 mg capsule 100 mg PO DAILY 06/09/24 (Colace) aspirin 81 mg chewable tablet 81 mg PO DAILY 07/07/24 [id number] tablet 1 tab PO DAILY 07/07/24 iron PO 07/21/24 sertraline 25 mg tablet 25 mg PO DAILY #90 tabs 07/22/24 sertraline 50 mg tablet 50 mg PO DAILY 90 days #90 tabs 09/01/24 Current Visit Medications: Current Medications Generic Name Dose Route Start Last Admin Trade Name Antonioq PRN Reason Stop Dose Admin Ringer's Solution 1,000 mls @ 150 mls/hr 09/08/24 07:45 09/08/24 07:45 IV 150 mls/hr INFUSION JIMENA Administration IV Miscellaneous Supplies 1 each 09/08/24 07:45 Iv Access IV DIRECTED JIMENA Sodium Chloride 0 ml 09/08/24 07:40 Normal Saline Flush 10 Ml Syr IVP PRN PRN Sodium Chloride 0 ml 09/08/24 08:30 Normal Saline Flush 10 Ml Syr IVP BID JIMENA Sodium Chloride 0 ml 09/08/24 07:40 Normal Saline 10 Ml Vial IJ DIRECTED PRN Terbutaline Sulfate 0.25 mg 09/08/24 08:00 Terbutaline 1 Mg/Ml Vial SC DIRECTED [facility] Active Problems Active Problems: Problem Status Onset Code Breech presentation Acute O32.1XX0 Fundal height high for dates Acute Z34.90 Anemia affecting Acute O99.019 Rubella non-immune status, antepartum Acute O09.899, Z28.39 Acute Z34.90 Obesity (BMI 30.0-34.9) Acute ~07/2022 E66.9 BMI 35.0-35.9,adult Acute Z68.35 Acute adjustment disorder with mixed anxiety and depressed mood Acute F43.23 Medical History Medical History Inadequate milk production anemia Lactating mother care following vaginal delivery Body mass index [BMI] 38.0-38.9, adult History of anxiety Surgical History Surgical History History of wisdom tooth extraction (2012) Tobacco Smoking/Tobacco Use Status: Never Passive smoking exposure: No Alcohol Alcohol Intake: current Alcohol intake frequency: a few times a week Substance Use Substance use: Never Substance use type: does not use Prental History History 2 2 Para 1 Hx # Term Pregnancies 1 Multiple births 0 Hx # Pregnancies 0 Ectopic pregnancies 0 AB induced 0 Hx Number of Living Children 1 AB spontaneous 0 Past Pregnancies Del. Date GA/Weeks # Preg Succ Route Wgt Sex Labor Lgth Anesth esia Location Prov [facility] 12/06/21 41 No Yes vaginal 3146.797 g Female regional [facility] Delivery Date: 12/06/21 Last Updated by: Seema Alexandre IOL postdates, epidural came apart and had to be reinserted, nml Sara Vega Vital Signs and Lab Results Vital Signs Most Recent Vital Signs in EMR: Most Recent Vital Signs Temp Pulse Resp BP Pulse Ox 36.7 C 88 18 134/85 98 09/08/24 07:42 09/08/24 08:19 09/08/24 07:42 09/08/24 07:42 09/08/24 08:19 Lab Results 09/08/24 07:40 Blood Type / Crossmatch: 2 No Data to Display Complete Blood Count: 2 No Data to Display Complete Metabolic Panel: 2 No Data to Display Liver Function Panel: 2 No Data to Display Coagulation Panel: 2 No Data to Display Cardiac Panel: 2 No Data to Display Arterial Blood Gas: 2 No Data to Display Venous Blood Gas: 2 No Data to Display Pancreas Panel: 2 No Data to Display Thyroid Panel: 2 No Data to Display Infectious Disease: 2 No Data to Display Blood Cultures: 2 No Data to Display Toxicology Panel: 2 No Data to Display Panel: 2 No Data to Display Anesthesia Assessment and Plan Anesthesia History Personal History: No History of Anesthesia Complications Family History: No Family History of Anesthesia Complications Exercise Tolerance Exercise Tolerance: Metabolic Equivalents>4 Pertinent Negatives Pertinent Negatives: No Symptoms of GERD, No Major Cardiovascular Symptoms or Complaints, No Major Pulmonary Symptoms or Complaints and No History of CVA/TIA Cardiac & Pulmonary Exam Cardiac Exam: Normal S1/S2 Heart Sounds Pulmonary Exam: Clear Bilateral Breath Sounds Implantable Cardiac Device Does patient have a Pacemaker or an ICD?: No Airway Exam Known Difficult Airway: No Mallampati Class: 3 Mouth Opening: Normal (> 3cm) Thyromental Distance: Greater than 3 cm Neck Range of Motion: Full ROM Neck Circumference: Normal Teeth Condition: Normal Dentition ASA Classification ASA Score: ASA 3 Emergency Case?: No NPO Status NPO Status: Full Stomach Status Status: Confirmed Anesthesia Plan Resuscitation Status: Full Code Anesthesia Technique: Spinal Anesthesia (Backup GETA) Airway Planned: Natural Airway (Backup GETA) Monitors Used: Standard Monitors
[2024-09-08 08:25] LABS: HGB 11.3 g/dL (11.2-15.7)
--- NOTE | 2024-09-08 09:02 | W.OBVERSION ---
Date of service: 09/08/24 Time of Service: 09:02 Version Note Version Note DATE OF PROCEDURE: 09/08/24 PRE-OP DIAGNOSES: Erin breech presentation POST-OP DIAGNOSES: other (cephalic presentation) PROCEDURE: External cephalic version SURGEON: Evy Love Assisting Surgeon: Lynne Coe Anesthesia: none Complications: None Patient was transported to: no change Patient's condition: stable Indications: Breech presentation Findings: LBSUS appreciated erin breech presentation with head to maternal left abdomen spine down. Cephalic presentation noted status post ECV. Procedure Description: Procedure method and risks of procedure as well as alternatives discussed again with the patient and she was consented again for ECV without epidural and possible and/or administration of blood products as needed. Patient was positioned on the bed in supine position with the bed flat. heart tracings were category 1 and no contractions were appreciated. Generous alloy was applied to the abdomen and the presenting part was disengaged from the maternal pelvis while pressure was placed on the head to promote a clockwise rotation. condition was monitored throughout the attempted version, and ultimately cephalic positioning was achieved. Patient tolerated the procedure very well. She did not require pain medications. She will be monitored for the following hour with plans for discharge assuming clinical status remained stable. Version Outcome: Confirmed via Ultrasound Pre/Post Procedure NST Pre-Procedure NST Time on Monitor: 25 Patient States Movement: Present Version Ultrasound Ultrasound Performed Ultrasound Image Saved: Yes
== END 2024-09-08 11:30 | disposition home or self-care (01) ==
PROVIDERS: Admitting Provider Obstetrics & Gynecology; PCP Nurse Practitioner Adult Health; Visit Provider Obstetrics & Gynecology
DX: O32.1XX0 Maternal care for breech presentation, not applicable or unspecified (principal); Z3A.36 36 weeks gestation of pregnancy; O99.213 Obesity complicating pregnancy, third trimester; O99.013 Anemia complicating pregnancy, third trimester; D64.9 Anemia, unspecified; E66.9 Obesity, unspecified
CPT/HCPCS: 59412; 36415; 59025; 85027; 86850; 86900; 86901; 85014; 85018

== ENCOUNTER 2024-09-19 12:36 | Outpatient (CLI) | payer BC, SELFPAY ==
[2024-09-19 13:07] VITALS: BP 131/75; PULSE 81
[2024-09-19 13:08] VITALS: BP 131/75; PULSE 81; TEMP 36.9
[2024-09-19 13:48] VITALS: BP 131/75; PULSE 81; TEMP 36.9
--- NOTE | 2024-09-19 13:48 | W.OBNST ---
Date of service: 09/19/24 Time of Service: 13:48 NST Evaluation Reason for NST Reasons for Nonstress Test: OTHER, SEE COMMENT Reason for NST Other: pt concerned that fetus has turned to breech position Gestational Age Gestational Age in Weeks and Days: 38 Weeks and 3Days Test and Monitor Explained Test/Monitor Explained: Test Explained, Monitor Explained and Patient Verbalized Understanding Vital Signs Blood Pressure: 131/75 Pulse: 81 Temperature: 98.4 F Urine Results Urine Protein: Negative Urine Ketones: Negative Urine Glucose: Negative Urine Blood: Negative NST Information Date on Monitor: 09/19/24 Time on Monitor: 12:48 Date off Monitor: 09/19/24 Time off Monitor: 13:10 Total Time on Monitor: 22 NST Interventions: None Contraction Frequency: rare NST Evaluation Patient States Movement: Present FHR Baseline: 135 Variability: Moderate 6-25 bpm Accelerations: 15x15 Decelerations: None NST Results: Reactive Note Ultrasound Done: Presentation Presentation Results: cephalic presentation, back on maternal left Coding for Presentation w/NST: Completed Exam. NST Note NST Reviewed and Verified by: Seema Alexandre
== END 2024-09-19 13:20 ==
LOC: BCD 12:37 → OBS 12:47
PROVIDERS: PCP Nurse Practitioner Adult Health; Visit Provider Advanced Practice Midwife
DX: Z3A.38 38 weeks gestation of pregnancy (principal); O32.1XX1 Maternal care for breech presentation, fetus 1
CPT/HCPCS: 59025

== ENCOUNTER 2024-09-27 18:51 | Inpatient (IN) | payer BC, SELFPAY ==
--- NOTE | 2024-09-27 18:54 | HPE_ITS ---
Date of service: 09/27/24 Time of Service: 18:54 Assessment and Plan Assessment and plan (1) Encounter for induction of labor: Status: Acute Assessment and plan: A: 34 yo @ 38+6 wks, presents for strongly desired IOL, elective basis, experiencing increased anxiety & discomforts Previous IOL for postdates @ 41 wks resulting in GBS negative, category 1 tracing, leonard score=2 (unfavorable) Risks/benefits of IOL reviewed i.e. potentially unsuccessful effort, lengthy process, increased risk for interventions including c/s Hx notable for breech verted with ECV at 37 weeks, stable cephalic presentation since then (confirmed) Increased risk for SD (BMI >35, TWG >48lb, normal glucola screening x2) and PPH (IOL process) Anxiety/depression disorder treated with sertraline P: Admit to L&D for cervical ripening, options reviewed with pt, will start with misoprostel q4 hrs x2 tonight If no labor resume efforts in the morning Pt is planning epidural anesthesia with onset of active labor FOB present as support during admission procedures (2) 39 weeks gestation of : Status: Acute OB-HPI Labor/Delivery History of Present Illness Reason for Visit: Induction Chief Complaint: Scheduled Induction of Labor (pt expresses strong desire for elective IOL d/t discomforts and anxiety) Indication for Induction: Other (pt elects IOL after informed choice). CHEL Calculator Estimated Delivery Date Method Current WG Current Estimate 09/30/24 LMP (Certain) 39w 4d Other Estimates 10/01/24 Ultrasound #1 39w 3d History of Present Expected Delivery Route/Plan - CNM FOB/ - Norman Fenton (2nd child together) BG Plans epidural; elective IOL booked for 09/27, 1800 Rubella immunity equivocal, offer MMR GBS negative Specific Issues/Plan 1. BMI 34, early glucola=80, 1hr 110 2. cfDNA low risk female, known negative for CF carrier (from & ), AFP - declined. 3. Depression/anxiety, take sertraline 25 mg qd, increased to 50mg 09/01 4. 5P screen negative, PHQ9 score is 3 5. Due for pap 6. Mild anemia at 28 wks, start oral iron tab, hgb 10.9 on 07/21/24 adding more insoluble fiber Assessment: History Reviewed & Current Informed Consent Informed Consent: Induction of Labor and Risk,Benefits,Alternatives Discussed Review of Systems Narrative: ROS completed and found to be noncontributory other than HPI PFSH All Active Problems (Updated 09/27/24 @ 19:15 by Seema Alexandre) Encounter for induction of labor (Acute) 39 weeks gestation of (Acute) Anemia affecting (Acute) Rubella non-immune status, antepartum (Acute) (Acute) Obesity (BMI 30.0-34.9) (Acute ~07/2022) Started semaglutide 07/2022; stopped December 2023 BMI 35.0-35.9,adult (Acute) Acute adjustment disorder with mixed anxiety and depressed mood (Acute) Medical History (Updated 09/27/24 @ 19:15 by Seema Alexandre) Fundal height high for dates Inadequate milk production anemia Lactating mother care following vaginal delivery Body mass index [BMI] 38.0-38.9, adult History of anxiety Surgical History History of wisdom tooth extraction (2012) Family History Maternal Grandmother Cancer Uterine Lymphoma Hypertension Breast cancer Maternal Grandfather Cancer lung Hypertension Mother Depression Father Hypertension Social History Smoking/Tobacco Use Status: Never Smoking risk assessment performed?: Yes Alcohol Intake: current Alcohol Intake frequency: a few times a week Drug use: Never Substance use type: does not use Adopted: No Caregiver/Support person: No Foster care: No Household members: spouse and children Housing: house Number of Children: 1 Communication Needs: None Education Level: college Details: doctorate (OD) Do you need help understanding health information?: Never current occupation: [employer] Pets and animals: Yes (3 Dogs, 1 Cat) Pets and animals: cat(s) and dog(s) Sexually active: Yes Do you think of yourself as: straight/heterosexual Current gender identity: female What is your relationship status?: How often do you talk on the phone with friends or family?: once per week How often do you get together with friends or relatives?: never How often do you attend gnosticism or lutheran services?: decline to answer Do you belong to any clubs or organized social groups?: yes Panel score (0-1 are the most socially isolated patients): 2 What type of physical activity do you participate in: none Duration: decline to answer Frequency: decline to answer Darcy/Hoahaoism: Protestant Special darcy needs: No Agree to transfusion: Yes Seatbelt use: always Helmet use: Yes Helmet use: always Drive intox or ride w/intox limo driver: No Do you feel safe at home: Yes Do you feel safe in your relationship?: Yes Female Reproductive History Menstrual Age of Menarche: 17 Duration of menses: 3-5 days History History 2 Para 1 Hx # Term Pregnancies 1 Multiple births 0 Hx # Pregnancies 0 Ectopic pregnancies 0 AB induced 0 Hx Number of Living Children 1 AB spontaneous 0 Past Pregnancies Del. Date GA/Weeks # Preg Succ Route Wgt Sex Labor Lgth Anesth esia Location [facility] 12/06/21 41 No Yes vaginal 6 lb 15 oz Female [facility] AMADOU Rincon Delivery Date: 12/06/21 Last Updated by: Seema Alexandre IOL postdates, epidural came apart and had to be reinserted, nml Sara Brody Allergies and Home Medications Allergies Allergy/AdvReac Type Severity Reaction Status Date / Time No Known Allergies Allergy Verified 09/22/24 15:57 Home Medications ?Medication ?Instructions ?Recorded ?Confirmed ?Type vits 75-iron 28 mg-folic 1 pkg PO DAILY 06/14/21 09/22/24 History acid 800 mcg-omega-3 oral combo pack (One A Day Women's DHA) magnesium 200 mg tablet 400 mg PO DAILY 07/30/21 09/22/24 History cholecalciferol (vitamin D3) 25 2,000 unit PO DAILY 03/13/22 09/22/24 History mcg (1,000 unit) capsule ascorbate calcium (vitamin C) 500 500 mg PO DAILY 07/17/22 09/22/24 History mg tablet docusate sodium 100 mg capsule 100 mg PO DAILY 06/09/24 09/22/24 History (Colace) aspirin 81 mg chewable tablet 81 mg PO DAILY 07/07/24 09/22/24 History [id number] tablet 1 tab PO DAILY 07/07/24 09/22/24 History iron 1 tab PO DAILY 07/21/24 09/22/24 History sertraline 25 mg tablet 25 mg PO DAILY #90 tabs 07/22/24 09/22/24 Rx sertraline 50 mg tablet 50 mg PO DAILY 90 days #90 tabs 09/01/24 09/22/24 Rx Exam Physical Exam Vital Signs Reviewed: Yes Constitutional Constitutional: no acute distress, obese and cooperative Detailed Labor and Delivery Exam Dilation: 2 Effacement (%): 20 station: -4 Position: LOP (cephalic presentation confirmed with bedside u/s) Cervix position: posterior Consistency: medium LEONARD Score(Cervical Ripeness Score): 2 Amniotic Membrane Status: Intact Monitor Mode: External Contraction Frequency(min): irritability per toco Contraction Intensity: Mild Fetus A Heart Rate Baseline: 135 Monitor Accelerations: 15 X 15 Monitor Decelerations: None Variability: Moderate (6-25 BPM) Categories: Category I Est. Weight: 7 lb 13.223 oz Est. Weight: 3550 gms HEENT Exam HEENT Exam: Normal Neck Exam Neck Exam: Normal Chest/Brest/Axilla Exam Chest Exam: Normal Breast Exam Breast Exam: Not Done Respiratory Exam Respiratory Exam: Normal Cardiovascular Exam Cardiovascular Exam: Normal Abdominal Exam Abdominal Exam: Normal (Gravid, nontender) Rectal Exam Rectal Exam: Normal Exam Exam: Normal Extremities Exam Extremities Exam: Normal Back/Spine/Pelvis Exam Back Exam: Normal Pelvis Adequate: Yes Skin Exam Skin Exam: Normal Neurological Exam Neurological Exam: Normal Psychiatric Exam Psychiatric Exam: Normal Results Results Group Beta Strep: Negative Blood Type: A+ Rubella Status: Nonimmune Varicella Immunity: Immune Risk Assessment Risk for Shoulder Dystocia Historical/Initial OB: POSITIVE FOR: Pre- BMI>30; NEGATIVE FOR: Pelvic Abnormality, Previous Shoulder Dystocia or Previous Macrosomia 36 Weeks: POSITIVE FOR: Maternal Weight Gain>40lbs; NEGATIVE FOR: Current Gestational DM or EFW>4500gms Increased Risk?: Yes Counselin lb weight gain this , pre-existing elevated BMI, EFW 1 lb more than previous delivery Delivery Plan @ 36wks: after successful ECV Risk for Pre-Eclampsia Date Initiated/Initials: not indicated. JK Yes, if one or more: NEGATIVE FOR: Hx Pre-E/Gest HTN, Chronic HTN, Multiple Gestation, Pre-gestational DM, Renal Disease, Systemic Lupus or APA Syndrome Yes, if 2 or more: POSITIVE FOR: BMI>30; NEGATIVE FOR: Nulliparity, Age>= 35 yrs, >10yr btwn pregnancies, ethinicty, Mother/Sister w/ Pre-E or Previous IUGR Risk for Post- Hemorrhage Initial: NEGATIVE FOR: Multiple Gestation, Previous PPH, Known Clotting Defi ciency, Grand Multiparity or Anticoagulation 36 Weeks: NEGATIVE FOR: Anemia, hgb<10, Low platelets(thrombocytopenia), Gestational HTN or Pre-E, Polyhydraminios or EFW>4500gms At Risk?: Yes (due to IOL process) Counseled re: Active Management: Yes Risks Reviewed Risks Reviewed Upon Admission: Yes
[2024-09-27 19:00] VITALS: BP 130/85; PULSE 87
[2024-09-27 19:08] VITALS: BP 130/85; PULSE 87; TEMP 36.8
[2024-09-27 19:11] VITALS: BP 130/85; PULSE 87; RESP 16; TEMP 36.8
[2024-09-27 19:13] LABS: HGB 11.3 g/dL (11.2-15.7); MCH 29.1 pg (27.0-33.0); MCHC 33.2 % (32.0-36.0); MCV 88 fL (80-95); MPV 10.7 fL (8.0-11.0); Platelet Count 162 10^3/uL (130-400); RBC 3.88 10^6/uL (3.93-5.22); RDW 13.6 % (11.7-14.6); RDW-SD 43.7 fL; WBC 9.61 10^3/uL (4.4-10.8)
[2024-09-27 19:39] LABS: Hemoglobin A1C 5.3 % (<5.7)
[2024-09-27] MEDS: miSOPROStol 25 MCG TAB 50 MCG PO ×2 (19:39→23:35)
[2024-09-27 20:45] VITALS: BP 127/86; PULSE 76
[2024-09-27 23:16] VITALS: BP 128/80; PULSE 83
[2024-09-27] MEDS: Zolpidem 5 MG TAB 10 MG PO (23:36)
[2024-09-28] VITALS (141 sets, daily range): BP systolic 100–162; BP diastolic 60–103; PULSE 69–132; RESP 16–19; TEMP 36.5–37.2; O2SAT 92–100; BMI 41.1
--- NOTE | 2024-09-28 06:36 | PGE_ITS ---
Date of service: 09/28/24 Time of Service: 06:36 Informed Consent Informed Consent: Regional Anesthesia and Risk,Benefits,Alternatives Discussed Pelvic Exam Dilation: 5 Effacement (%): 50 station: -3 Position: LOP Cervix Position: mid Consistency: soft BISHOPS Score(Cervical Ripeness Score): 7 Comments: gross rupture confirmed visually by green fluid noted on pads Contractions Monitor Mode: External Contraction Frequency(min): q3-4 Intensity: Moderate Fetus A Monitor: External (US) Heart Rate Baseline: 135 Variability: Moderate (6-25 BPM) Categories: Category I Accelerations: 15 X 15 Decelerations: None Amniotic Membrane Status: Ruptured Rupture Method: Spontaneous Amniotic Fluid: Meconium Amount: small/moderate Date of Membrane Rupture: 09/27/24 Time of Membrane Rupture: 22:00 Assessment and Plan Assessment and plan (1) Encounter for induction of labor: Status: Acute Assessment and plan: A: Elective IOL in progress, good response to misoprostel (50 mcg x2 last night) SROM confirmed, meconium stained, category 1 tracing, mosley score=7 Pt requesting epidural anesthesia P: Will initiate IV access, general handling supervisor notified to page LUDY Love consulting prn. Anticipate Objective Vital Signs Reviewed: Yes Subjective Interval history since last seen: Pt slept until 0430, then woke up feeling contractions and they are a bit painful, requests epidural. Water began leaking green fluid at 2200 last night.
[2024-09-28] MEDS: Lactated Ringers 1,000 ML 125 ML IV ×2 (07:00→10:16)
--- NOTE | 2024-09-28 07:09 | ANES.PREOP_ITS ---
General Info Date of Service Date Performed: 09/28/24 Height: 5 ft 6 in Weight: 115.666 kg Body Mass Index (BMI): 41.1 Meds Allergies and Home Medications Allergies Allergy/AdvReac Type Severity Reaction Status Date / Time No Known Allergies Allergy Verified 09/22/24 15:57 Home Medication ?Medication ?Instructions ?Recorded vits 75-iron 28 mg-folic 1 pkg PO DAILY 06/14/21 acid 800 mcg-omega-3 oral combo pack (One A Day Women's DHA) magnesium 200 mg tablet 400 mg PO DAILY 07/30/21 cholecalciferol (vitamin D3) 25 2,000 unit PO DAILY 03/13/22 mcg (1,000 unit) capsule ascorbate calcium (vitamin C) 500 500 mg PO DAILY 07/17/22 mg tablet docusate sodium 100 mg capsule 100 mg PO DAILY 06/09/24 (Colace) aspirin 81 mg chewable tablet 81 mg PO DAILY 07/07/24 [id number] tablet 1 tab PO DAILY 07/07/24 iron 1 tab PO DAILY 07/21/24 sertraline 25 mg tablet 25 mg PO DAILY #90 tabs 07/22/24 sertraline 50 mg tablet 50 mg PO DAILY 90 days #90 tabs 09/01/24 Current Visit Medications: Current Medications Generic Name Dose Route Start Last Admin Trade Name Fernando PRN Reason Stop Dose Admin Fentanyl/Ropivacaine 200 ml 09/28/24 07:00 Fentanyl/Ropivacaine 2 Mcg/Ml And 0.1% 200 Ml Cadd Cassette EP DIRECTED JIMENA Ringer's Solution 500 mls @ 500 mls/hr 09/28/24 06:48 IV 09/28/24 07:47 BOLUS ONE IV Miscellaneous Supplies 1 each 09/28/24 06:45 Iv Access IV DIRECTED [facility] Misoprostol 50 mcg 09/27/24 19:00 09/27/24 23:35 Misoprostol 25 Mcg Tab PO 50 mcg Q4H JIMENA Administration Sertraline HCl 25 mg 09/28/24 08:30 Sertraline 25 Mg Tab PO DAILY JIMENA Sodium Chloride 0 ml 09/28/24 06:44 Normal Saline Flush 10 Ml Syr IVP PRN PRN Sodium Chloride 0 ml 09/28/24 08:30 Normal Saline Flush 10 Ml Syr IVP BID JIMENA Sodium Chloride 0 ml 09/28/24 06:44 Normal Saline 10 Ml Vial IJ DIRECTED PRN Terbutaline Sulfate 0.25 mg 09/27/24 18:51 Terbutaline 1 Mg/Ml Vial SC PRN PRN Zolpidem Tartrate 10 mg 09/27/24 18:51 09/27/24 23:36 Zolpidem 5 Mg Tab PO 10 mg HS PRN PRN Administration Sleep PFSH Active Problems Active Problems: Problem Status Onset Code Encounter for induction of labor Acute Z34.90 39 weeks gestation of Acute Z3A.39 Anemia affecting Acute O99.019 Rubella non-immune status, antepartum Acute O09.899, Z28.39 Acute Z34.90 Obesity (BMI 30.0-34.9) Acute ~07/2022 E66.9 BMI 35.0-35.9,adult Acute Z68.35 Acute adjustment disorder with mixed anxiety and depressed mood Acute F43.23 Medical History Medical History Fundal height high for dates Inadequate milk production anemia Lactating mother care following vaginal delivery Body mass index [BMI] 38.0-38.9, adult History of anxiety Surgical History Surgical History History of wisdom tooth extraction (2012) Tobacco Smoking/Tobacco Use Status: Never Passive smoking exposure: No Alcohol Alcohol Intake: current Alcohol intake frequency: a few times a week Substance Use Substance use: Never Substance use type: does not use Prental History History 2 2 Para 1 Hx # Term Pregnancies 1 Multiple births 0 Hx # Pregnancies 0 Ectopic pregnancies 0 AB induced 0 Hx Number of Living Children 1 AB spontaneous 0 Past Pregnancies Del. Date GA/Weeks # Preg Succ Route Wgt Sex Labor Lgth Anesth esia Location Prov [facility] 12/06/21 41 No Yes vaginal 3146.797 g Female [facility] AMADOU Rincon Delivery Date: 12/06/21 Last Updated by: Seema Alexandre IOL postdates, epidural came apart and had to be reinserted, nml Sara Vega Vital Signs and Lab Results Vital Signs Most Recent Vital Signs in EMR: Most Recent Vital Signs Temp Pulse Resp BP 36.8 C 87 16 135/82 09/28/24 03:53 09/28/24 03:53 09/27/24 19:11 09/28/24 03:53 Lab Results 09/27/24 19:07 Blood Type / Crossmatch: 2 Antibody Screen NEGATIVE 09/27/24 Complete Blood Count: 2 White Blood Count 9.61 10^3/uL (4.4-10.8) 09/27/24 19:07 Red Blood Count 3.88 10^6/uL (3.93-5.22) L 09/27/24 19:07 Hemoglobin 11.3 g/dL (11.2-15.7) 09/27/24 19:07 Hematocrit 34.0 % (36.0-46.0) L 09/27/24 19:07 Platelet Count 162 10^3/uL (130-400) 09/27/24 19:07 Complete Metabolic Panel: 2 Hemoglobin A1c 5.3 % (<5.7) 09/27/24 19:07 Liver Function Panel: 2 No Data to Display Coagulation Panel: 2 No Data to Display Cardiac Panel: 2 No Data to Display Arterial Blood Gas: 2 No Data to Display Venous Blood Gas: 2 No Data to Display Pancreas Panel: 2 No Data to Display Thyroid Panel: 2 No Data to Display Infectious Disease: 2 No Data to Display Blood Cultures: 2 No Data to Display Toxicology Panel: 2 No Data to Display Panel: 2 No Data to Display Anesthesia Assessment and Plan Anesthesia History Personal History: No History of Anesthesia Complications Family History: No Family History of Anesthesia Complications Exercise Tolerance Exercise Tolerance: Metabolic Equivalents>4 Pertinent Negatives Pertinent Negatives: No Major Cardiovascular Symptoms or Complaints, No Major Pulmonary Symptoms or Complaints and No History of CVA/TIA Cardiac & Pulmonary Exam Cardiac Exam: Normal S1/S2 Heart Sounds Pulmonary Exam: Clear Bilateral Breath Sounds Implantable Cardiac Device Does patient have a Pacemaker or an ICD?: No Airway Exam Known Difficult Airway: No Mallampati Class: 3 Mouth Opening: Normal (> 3cm) Thyromental Distance: Greater than 3 cm Neck Range of Motion: Full ROM Neck Circumference: Normal Teeth Condition: Normal Dentition ASA Classification ASA Score: ASA 3 Emergency Case?: No NPO Status NPO Status: Full Stomach Status Status: Confirmed Anesthesia Plan Resuscitation Status: Full Code Anesthesia Technique: Labor Epidural Airway Planned: Natural Airway Monitors Used: Standard Monitors
--- NOTE | 2024-09-28 07:53 | ANES.NEUR_ITS ---
Epidural/Spinal Catheter Date Performed: 09/28/24 Procedure Start: 07:20 Procedure Stop: 07:54 Requesting Provider: Seema Alexandre Procedure Location: Obstetrics Reason Performed: Labor Epidural Standard Monitors Applied: Blood Pressure, SpO2 and See EMR for corresponding vital signs Patient Position: Sitting Sedation Given (Indicate Dose Given): No Sedation given Patient Mental Status: Awake Sterility: Hand Hygiene, Surgical Cap, Surgical Mask, Sterile Gloves, Sterile Drape/Sheet and Chlorhexidine Procedure Location: L3-L4 Interspace Epidural Needle: Tuohy 18 Gauge Needle Length: 3.5 Inch Needle Approach: Midline Epidural Procedure: Skin Prepped, Sterile Drape Placed, 1% Lidocaine to skin and subcutaneous tissue with 25G needle, Tuohy Needle placed, ISABEL to Saline Used, Epidural Catheter Placed, Negative Heme, Negative CSF Flow and Tuohy Needle Removed Catheter Placed?: Catheter Placed Test Dose (Indicate Dose Given): 3ml 1.5% Lidocaine with 1:200K Epinephrine Given and Negative Test Dose Loss of Resistance Depth (cm): 7 Catheter depth at skin (cm): 13 Dressing: Sorbaview Dressing Placed, Mastisol Used and Dressing reinforced with Tape Epidural Provid er Bolus (Indicate Dose Given): Total bolus dose given in 3-5 ml divided doses and Total Ropivacaine 0.1% with Fentanyl 2mcg/ml Given from pump. (ml) Dose:: 5ml x2 from pump Additives (Indicate Dose Given ): None Infusion Medication: Medication Infusion Began Medication Infusion: Ropivacaine 0.1% with Fentanyl 2mcg/ml Maintenance Infusion Rate (ml/hour): 10 PCEA Bolus Dose (ml): 5 Post Procedure Pain score (0-10): 1 Block Level: N/A Paresthesia: None Ultrasound: Used to ysabel site Number of Attempts (See previous attempts in note section): 1 Procedure Tolerated: No Complications and Patient tolerated well Procedure Outcome: Successful Procedure Comment:: Pt. more comfortable. Has one small Hot spot on left lower abdomen but not even enough to cause grimace. Educated on PCEA use and will let her do this. Questions answered, motor is 5/5 with slight right leg more numb than left. Performed By: Ashvin Johnson
[2024-09-28] MEDS: FentaNYL/ROPIvacaine 2 mcg/ml and 0.1% 200 ML CADD Cassette EP (08:00)
[2024-09-28] MEDS: Sertraline 25 MG TAB 50 MG PO (09:20)
--- NOTE | 2024-09-28 13:15 | W.PM.OBNL1 ---
Date of service: 09/28/24 Time of Service: 13:15 Informed Consent Informed Consent: Augmentation of Labor and Risk,Benefits,Alternatives Discussed Pelvic Exam Dilation: 6 Effacement (%): 100 station: -2 Cervix Position: mid Contractions Contraction Frequency(min): q2-4 Intensity: Moderate Fetus A Monitor: External (US) Heart Rate Baseline: 140 Variability: Moderate (6-25 BPM) Categories: Category I Accelerations: Present Decelerations: None Amniotic Membrane Status: Ruptured Assessment and Plan Assessment and plan (1) Encounter for induction of labor: Status: Acute Assessment and plan: A: Epidural anesthesia, progressed to active labor Inadequate contractions pattern P: Pt consents to pitocin augmentation Anticipate Objective vital signs stable Vital Signs Reviewed: Yes Subjective Interval history since last seen: Comfortable with epidural, more numb on right side. Was able to nap this morning.
[2024-09-28] MEDS: NALBUPHINE 5 MG in Normal Saline 50 ML 100 MG IVPB (13:31)
[2024-09-28] MEDS: Oxytocin/Normal Saline 30 UNIT/500 ML BAG 1 UNITS IV (13:58)
[2024-09-28] MEDS: Methylergonovine 0.2 MG/ML VIAL IM (16:27)
--- NOTE | 2024-09-28 16:35 | W.OBDELIVERY ---
Date of service: 09/28/24 Time of Service: 16:35 OB Labor/ Delivery Information Baby A Delivery Delivery Method: Spontaneaous Presentation: Cephalic Cephalic Position: Vertex Vertex Position: Left Occipital Anterior Breech Position: N/A Cord Description-Baby A: 3 Vessels Amniotic Fluid: Meconium Quantitative Blood Loss: 650 Delivery Outcome: Liveborn Transferred: Remains with Mother Note: Pitocin augmentation @ 1 mu/min infused for 45 minutes then turned off due to tachysystole, pt progressed to full dilation spontaneously, 2nd stage huddle completed and excellent maternal efforts resulted in over attempted intact perineum of a vigorous female infant, shoulders delivered easily and nuchal hand noted, infant to mother's arms immediately. pitocin bolus begun, cord clamped and cut by FOB at 4 minutes, cord blood collected and Calix placenta delivered intact with 3VC. Initially brisk bleeding slowed with fundal massage, 0.2 mg metherine given IM and moderate amt clots manually swept from cervical os, fundus firm below umbilicus. 2nd degree laceration repaired with 3.0 Vicryl under epidural anesthesia, rectal exam done to confirm mucosa and sphincter to be intact. Strong family bonding observed, apgars 8/9, weight 4275 gms. Providers Nurse Statistical Programmer Analyst: Seema Alexandre Nurse: Avani Rogers Nurse: Marla Hinton Labor/Delivery Information Number of Babies in Womb: 1 Steroids Given: None Reason Steroids Not Administered: N/A Group Beta Strep: Negative Antibiotics Administered: No Rubella Status: Equivocal Blood Type: A+ Varicella Immunity: Immune Maternal Complications: None Shoulder Dystocia: No Stages of Labor Onset of Labor Date: 09/27/24 Onset of Labor Time: 21:57 Complete Dilatation Date: 09/28/24 Complete Dilatation Time: 15:50 Labor - Stage 1 Duration: 17 hours and 53 minutes ROM Baby A: 09/27/24 ROM Baby A: 21:57 ROM Total Time- Baby A: [id number] Infant Delivery Date-Baby A: 09/28/24 Infant Delivery Time-Baby A: 16:08 Labor Stage 2 Duration: 18 minutes Placenta Delivery Date-Baby A: 09/28/24 Placenta Delivery Time-Baby A: 16:14 Labor-Stage 3 Duration: 6 minutes Total Length of Labor-Baby A: 18 hours and 11 minutes Placenta Cultured: No Placenta Status: Delivered Baby A Infant Gender: Female Gestational Status: Term (39-41.6 wks) Gestational Age in Weeks/Days: 40 Weeks and 1 Days weight: 9 lb 6.796 oz Weight Comment: 4275 gms Length-Baby A: 19 in Score-1 Minute Interval(Baby A) Heart Rate-1 minute: 100 BPM or Greater Respiratory Effort- 1 minute: Spontaneous/Strong Cry Muscle Tone-1 minute: Active Movement Reflex Response-1 minute: Minimal Response Color-1 minute: Bluish Hands or Feet Total Score-1 minute: 8 Score-5 Minute Interval(Baby A) Heart Rate- 5 minute: 100 BPM or Greater Respiratory Effort-5 minute: Spontaneous/Strong Cry Muscle Tone-5 minute: Active Movement Reflex Response-5 minute: Prompt Response Color-5 minute: Bluish Hands or Feet Total Score- 5 minute: 9
--- NOTE | 2024-09-28 18:18 | W.ANESPOSTOP ---
Postoperative Evaluation Date, Time and Location Date Performed: 09/28/24 Time Performed: 17:34 Patient Location: Obstetrics Vital Signs Most Recent Imported Vital Signs: Most Recent Vital Signs Temp Pulse Resp BP Pulse Ox 36.8 C 88 18 100/75 96 09/28/24 16:30 09/28/24 18:00 09/28/24 16:30 09/28/24 18:00 09/28/24 16:07 Pain Score Most Recent Pain Score: Most Recent Pain Score Pain Level 0 09/28/24 16:30 Assessment Mental Status: Awake (Alert & Oriented to Patient Baseline) Airway and Respiratory Function: Patent airway with normal (patient baseline) respiratory exam Cardiovascular Function: Hemodynamically Stable Hydration Status: Adequately Hydrated Nausea & Vomiting: No Nausea or Vomiting Pain: Pt. Denies Any Pain Peripheral Nerve Block: Other (Epidural appropriately resolved, denied complaint, denied headache, denied backpain. Catheter in place. Discussed with RN and they will notify anesthesia if any issues with the catheter removal. )
[2024-09-28] MEDS: Acetaminophen 325 MG TAB 650 MG PO (19:50)
[2024-09-28] MEDS: Methylergonovine 0.2 MG TAB PO (19:50)
[2024-09-28] MEDS: Ibuprofen 600 MG TAB PO (19:51)
[2024-09-28] MEDS: Dibucaine 1% 28 GM TUBE TP (19:52)
[2024-09-28] MEDS: Hamamelis Leaf/Glycerin 100 EACH BOX PR (19:53)
[2024-09-29 00:29] VITALS: BP 134/83; PULSE 71; RESP 18; TEMP 36.8; O2SAT 98
[2024-09-29] MEDS: Ibuprofen 600 MG TAB PO ×2 (02:38→11:56)
[2024-09-29] MEDS: Acetaminophen 325 MG TAB 650 MG PO ×2 (02:38→11:55)
[2024-09-29 03:41] VITALS: BP 125/89; PULSE 75; RESP 18; TEMP 35.8
--- NOTE | 2024-09-29 07:35 | OBPPV_ITS ---
Date of service: 09/29/24 Time of Service: 07:35 Assessment and Plan Assessment and plan (1) Term delivered: Status: Acute Assessment and plan: A: PPD #1, nml recovery Satisfied with experience off to a good start P: Offer MMR to pt prior to discharge pt planning condoms as contraception Discharge to home this evening or when infant released Written instructions reviewed and given to pt F/up at 2 & 6 wks Subjective Subjective Patient comments: No complaints, Pain well controlled, Tolerating diet and Flatus present Patient's Mood: happy [place] baby status: Doing well, Nursing well, Rooming in and Strong Bonding Observed [place] feeding status: Exclusively breast feeding Exam Physical Exam Vital signs: Temp Pulse Resp BP Pulse Ox 96.4 F L 75 18 125/89 98 09/29/24 03:41 09/29/24 03:41 09/29/24 03:41 09/29/24 03:41 09/29/24 00:29 Vital Signs Reviewed: Yes Constitutional Constitutional: no acute distress, obese and cooperative HEENT Exam HEENT Exam: Normal Neck Exam Neck Exam: Normal Breast Exam Bilateral: Breast Exam: Normal and Soft Nipple Exam: Normal and Uninjured Respiratory Exam Respiratory Exam: Normal Cardiovascular Exam Cardiovascular Exam: Normal Abdominal Exam Abdomen: Other (soft, nontender) Fundal Exam Fundus: Below Umbilicus and Firm Rectal Exam Rectal Exam: Normal Exam Perineum: Repair Intact Extremities Exam Extremity Exam: Normal, Full ROM and Warm to Touch Back/Spine/Pelvis Exam Back Exam: Normal Skin Exam Skin Exam: Normal Neurological Exam Neurological Exam: Normal Psychiatric Exam Psychiatric Exam: Normal
[2024-09-29] MEDS: Sertraline 25 MG TAB 50 MG PO (08:56)
[2024-09-29] MEDS: Methylergonovine 0.2 MG TAB PO (08:56)
[2024-09-29 09:13] VITALS: BP 131/87; PULSE 77; RESP 18; TEMP 36.6
[2024-09-29] MEDS: Measles, Mumps, & Rubella Vaccine 0.5 ML VIAL SC (14:42)
--- NOTE | 2024-09-29 17:55 | W.PM.OBDISCH ---
Date of service: 09/29/24 Time of Service: 17:55 DS: Diagnosis Discharge Diagnosis (1) Term delivered: Status: Acute Discharge Plan Disposition Patient Disposition: Home Condition: Good Discharge Details Reason For Visit: Induction Admit Date/Time: 09/27/24 18:51 Admit Provider: Seema Alexandre Attending Provider: Seema Alexandre Primary Care Provider: Nancy Hoyt Hospital Course Hospital Course: Admitted for IOL at 39 wks, on HD#2, nml course, desires discharge on PPD#1 Home Meds and New Rx's Prescriptions: No Action cholecalciferol (vitamin D3) 25 mcg (1,000 unit) capsule 2,000 unit PO DAILY ascorbate calcium (vitamin C) 500 mg tablet 500 mg PO DAILY docusate sodium [Colace] 100 mg capsule 100 mg PO DAILY [id number] Tablet 1 tab PO DAILY Patient Comments: states 88103 mg iron 28 mg 1 tab PO DAILY sertraline 50 mg tablet 50 mg PO DAILY 90 Days Qty: 90 4RF One A Day Women's DHA 28 mg iron- 800 mcg combo pack 1 pkg PO DAILY magnesium 200 mg tablet 400 mg PO DAILY Discharge Instructions Additional Instructions: Please keep a 2 and 6 week appointment with the midwives, call for any and all concerns Stand Alone Forms: BC Instructions, BC Post Vaginal Deliver Activity:: Activity as Tolerated Equipment/Supplies:: No Equipment Needed Diet:: Normal Diet OB:DS Summary Summary Vaginal Delivery Method: Spontaneaous Episiotomy Description: None Laceration Description: Periurethral Laceration Extension: Second Degree Contraception Discussed Contraception Discussed: Yes Contraceptive Plan: Foam/Condoms, Infant Gender-Baby A: Female weight: 9 lb 6.796 oz Status at Discharge Functional status at discharge: independent ambulation Overall status at discharge: patient is progressing back to baseline Mental Status: mental status grossly normal Speech and Movement: speech and movement normal and speech clear Mood: congruent mood Affect: normal affect Quality:SDOH Health Related Social Needs: Health related social needs details N/A Exam Physical Exam Vital signs: Temp Pulse Resp BP Pulse Ox 97.8 F 77 18 131/87 98 09/29/24 09:13 09/29/24 09:13 09/29/24 09:13 09/29/24 09:13 09/29/24 00:29 Constitutional Constitutional: no acute distress, obese and cooperative HEENT Exam HEENT Exam: Normal Neck Exam Neck Exam: Normal Breast Exam Bilateral: Breast Exam: Normal and Soft Respiratory Exam Respiratory Exam: Normal Cardiovascular Exam Cardiovascular Exam: Normal Abdominal Exam Abdomen: Other (soft, nontender) Fundal Exam Fundus: Below Umbilicus and Firm Rectal Exam Rectal Exam: Normal Exam Perineum: Repair Intact Extremities Exam Extremity Exam: Normal, Full ROM and Warm to Touch Back/Spine/Pelvis Exam Back Exam: Normal Skin Exam Skin Exam: Normal Neurological Exam Neurological Exam: Normal Psychiatric Exam Psychiatric Exam: Normal Additional findings Additional findings: gross rupture confirmed visually by green fluid noted on pads PFSH All Active Problems (Updated 09/29/24 @ 07:37 by Seema Alexandre) Term delivered (Acute) Rubella non-immune status, antepartum (Acute) Obesity (BMI 30.0-34.9) (Acute ~07/2022) Started semaglutide 07/2022; stopped December 2023 BMI 35.0-35.9,adult (Acute) Acute adjustment disorder with mixed anxiety and depressed mood (Acute) Medical History (Updated 09/29/24 @ 07:37 by Seema Alexandre) Anemia affecting 39 weeks gestation of Encounter for induction of labor Fundal height high for dates Inadequate milk production anemia Lactating mother care following vaginal delivery Body mass index [BMI] 38.0-38.9, adult History of anxiety Surgical History History of wisdom tooth extraction (2012) Family History Maternal Grandmother Cancer Uterine Lymphoma Hypertension Breast cancer Maternal Grandfather Cancer lung Hypertension Mother Depression Father Hypertension Social History Smoking/Tobacco Use Status: Never Smoking risk assessment performed?: Yes Alcohol Intake: current Alcohol Intake frequency: a few times a week Drug use: Never Substance use type: does not use Adopted: No Caregiver/Support person: No Foster care: No Household members: spouse and children Housing: house Number of Children: 1 Communication Needs: None Education Level: college Details: doctorate (OD) Do you need help understanding health information?: Never current occupation: Customer Services Manager Pets and animals: Yes (3 Dogs, 1 Cat) Pets and animals: cat(s) and dog(s) Sexually active: Yes Do you think of yourself as: straight/heterosexual Current gender identity: female What is your relationship status?: How often do you talk on the phone with friends or family?: once per week How often do you get together with friends or relatives?: never How often do you attend moravian or judaism services?: decline to answer Do you belong to any clubs or organized social groups?: yes Panel score (0-1 are the most socially isolated patients): 2 What type of physical activity do you participate in: none Duration: decline to answer Frequency: decline to answer Darcy/Pentecostalism: Mu-Ism Special darcy needs: No Agree to transfusion: Yes Seatbelt use: always Helmet use: Yes Helmet use: always Drive intox or ride w/intox tractor trailer driver: No Do you feel safe at home: Yes Do you feel safe in your relationship?: Yes Female Reproductive History Menstrual Age of Menarche: 17 Duration of menses: 3-5 days History History 2 Para 1 Hx # Term Pregnancies 1 Multiple births 0 Hx # Pregnancies 0 Ectopic pregnancies 0 AB induced 0 Hx Number of Living Children 1 AB spontaneous 0 Past Pregnancies Del. Date GA/Weeks # Preg Succ Route Wgt Sex Labor Lgth Anesthesia Location [facility] 12/06/21 41 No Yes vaginal 6 lb 15 oz Female regional [facility] Delivery Date: 12/06/21 Last Updated by: Seema Alexandre IOL postdates, epidural came apart and had to be reinserted, nml Sara Vega DS: Data Vitals/I&O Vitals and I&O: Vital Signs Temperature 97.8 F 09/29/24 09:13 Temperature 98.2 F 09/27/24 19:08 Temperature Source Oral 09/29/24 09:13 Pulse 77 09/29/24 09:13 Pulse 87 09/27/24 19:08 Pulse Rhythm Regular 09/29/24 09:13 Respiratory Rate 18 09/29/24 09:13 Blood Pressure 131/87 09/29/24 09:13 Blood Pressure 130/85 09/27/24 19:08 Blood Pressure Mean 101 09/29/24 09:13 Pulse Oximetry 98 09/29/24 00:29 Oxygen Delivery Method Room Air 09/27/24 19:11 Oxygen Flow Rate 0 09/27/24 19:11 Pain Level 2 09/29/24 12:56 Comment resting on left side 09/28/24 09:39 Intake & Output 09/28/24 09/29/24 09/29/24 23:59 11:59 23:59 Intake Total 788.517 / 2119.350 Output Total 1275 / 3225 300 / 300 Balance -486.483 / -1105.650 -300 / -300 Intake: IV 788.517 / 1759.350 Output: Urine 450 / 2400 300 / 300 Blood 825 / 825 Other: Urine Color Lang[place]ne Lang[place]ne Urine Appearance Clear
== END 2024-09-29 18:50 | disposition home or self-care (01) | DRG 807 ==
PROVIDERS: Admitting Provider Advanced Practice Midwife; PCP Nurse Practitioner Adult Health; Visit Provider Advanced Practice Midwife
DX: O99.344 Other mental disorders complicating childbirth (principal); Z37.0 Single live birth; F41.9 Anxiety disorder, unspecified; F32.9 Major depressive disorder, single episode, unspecified; Z3A.39 39 weeks gestation of pregnancy; O77.0 Labor and delivery complicated by meconium in amniotic fluid; O99.02 Anemia complicating childbirth; D64.9 Anemia, unspecified; O99.214 Obesity complicating childbirth; E66.9 Obesity, unspecified; O70.1 Second degree perineal laceration during delivery; Z28.39 Other underimmunization status
CPT/HCPCS: 36415; 85027; 86850; 86900; 86901; 90707; 59200; 83036; J2210; J2300; J3490

== ENCOUNTER 2024-11-09 11:23 | Outpatient (REF) | payer BC, SELFPAY ==
--- NOTE | 2024-11-09 11:30 | PAPFT_PTH ---
PATIENT: Nahomi Ang LOC: [facility] U#:[id number] AGE/SX: 34/F ROOM: RE11/09/[address]: Celsa Guzman : 1990 BED: DIS: 11/09/2024 SPEC #: [id number] RECD: 11/09/24 15:03 STATUS: DIONY RETyrone #: [id number] COLIN: 11/09/24 11:[address]: Celsa Guzman DEPT: [facility] Cytology RECD BY: Sara Fernandez ENTERED: 11/09/24 15:04 SP TYPE: PAPFT OTHR DR: Nancy Hoyt APRN Tissues: 1 - CX/ENDOCX FOR PAP SMEARS Procedures: PAP THIN PREP/[facility] Screening HPV DNA PROBE Comments: [id number] (HPV 16 & 18/45)
== END 2024-11-09 11:24 | disposition home or self-care (01) ==
LOC: LBN 11:23
PROVIDERS: PCP Nurse Practitioner Adult Health; Visit Provider Advanced Practice Midwife
DX: Z11.51 Encounter for screening for human papillomavirus (HPV) (principal); Z01.419 Encounter for gynecological examination (general) (routine) without abnormal findings
CPT/HCPCS: 88142; 87624